=== PATIENT | female | born 1965 | race Caucasian/White ===

== ENCOUNTER 2020-10-04 12:44 | Outpatient (REF) | payer MEDICAID, SELFPAY ==
[2020-10-04 13:57] LABS: MANUAL DIFF FLAG NO
[2020-10-04 14:15] LABS: Basophils Absolute Auto 0.1 X10*3/uL (0.0-0.2); Eosinophils Absolute Auto 0.1 X10*3/uL (0.0-0.4); Eosinophils Percent Auto 2.4 % (0-4); Hematocrit 34.4 % (37-47); Hemoglobin 11.2 g/dl (12.0-16.0); Imm Gran Abs Auto 0.01 X10*3/uL (0.00-0.03); Imm Gran Pct Auto 0.2 % (0.0-0.4); Lymphocytes Absolute Auto 1.7 X10*3/uL (1.2-4.9); Lymphocytes Percent Auto 33.5 % (20-40); Mean Corpuscular HGB Conc 32.6 g/dl (31.0-35.0); Mean Corpuscular Hemoglobin 37.3 pg (27.0-33.0); Mean Platelet Volume 9.8 fL (9.4-12.3); Monocytes Absolute Auto 0.5 X10*3/uL (0.1-1.2); Monocytes Percent Auto 8.9 % (2-11); Neutrophils Absolute Auto 2.7 X10*3/uL (2.0-8.3); Platelet Count 252 X10*3/uL (160-400); Red Cell Distribution Width 12.3 % (11.0-16.0)
[2020-10-04 14:26] LABS: Mean Corpuscular Volume 114.7 fL (80-98)
[2020-10-04 14:38] LABS: Alanine Aminotransferase 44 U/L (0-31); Albumin Level 4.2 g/dL (3.5-5.0); Alkaline Phosphatase 154 U/L (39-117); Anion Gap 13 (12-20); Aspartate Amino Transferase 65 U/L (5-31); Bilirubin Total 0.5 mg/dL (0.0-1.0); Blood Urea Nitrogen 18 mg/dL (9-16); Calcium 9.6 mg/dL (8.4-10.2); Carbon Dioxide 25 mmol/L (22-29); Chloride 107 mmol/L (96-108); Estimated Glomerular Filt Rate > 60; Glucose Random 93 mg/dL (60-115); Sodium 141 mmol/L (135-145); Total Protein 6.8 g/dL (6.5-8.0)
[2020-10-04 14:46] LABS: Free T4 (Free Thyroxine) 0.84 ng/dL (0.71-1.85); Thyroid Stimulating Hormone 3.61 uIU/mL (0.32-4.0)
[2020-10-04 14:58] LABS: Folate 6.1 ng/mL (> or = 4.0); Vitamin B12 256 pg/mL (200-900)
== END 2020-10-04 12:45 | disposition home or self-care (01) ==
LOC: HO.10HDL 12:44
PROVIDERS: Visit Provider Internal Medicine
DX: R79.89 Other specified abnormal findings of blood chemistry (principal); E03.9 Hypothyroidism, unspecified; R21 Rash and other nonspecific skin eruption
CPT/HCPCS: 36415; 80053; 82607; 82746; 84439; 84443; 85025; 85060

== ENCOUNTER 2020-12-06 12:12 | Outpatient (REF) | payer MEDICAID, SELFPAY ==
[2020-12-06 13:22] LABS: MANUAL DIFF FLAG NO
[2020-12-06 13:24] LABS: Basophils Percent Auto 0.5 % (0-2); Eosinophils Percent Auto 0.3 % (0-4); Hematocrit 35.6 % (37-47); Hemoglobin 12.2 g/dl (12.0-16.0); Imm Gran Abs Auto 0.06 X10*3/uL (0.00-0.03); Imm Gran Pct Auto 0.9 % (0.0-0.4); Lymphocytes Absolute Auto 1.6 X10*3/uL (1.2-4.9); Lymphocytes Percent Auto 25.2 % (20-40); Mean Corpuscular HGB Conc 34.3 g/dl (31.0-35.0); Mean Corpuscular Hemoglobin 32.1 pg (27.0-33.0); Mean Corpuscular Volume 93.7 fL (80-98); Mean Platelet Volume 9.8 fL (9.4-12.3); Monocytes Absolute Auto 1.1 X10*3/uL (0.1-1.2); Monocytes Percent Auto 17.4 % (2-11); Neutrophils Absolute Auto 3.6 X10*3/uL (2.0-8.3); Neutrophils Percent Auto 55.7 % (45-73); Platelet Count 161 X10*3/uL (160-400); Red Cell Distribution Width 14.8 % (11.0-16.0); White Blood Count 6.5 X10*3/uL (4.8-10.8)
[2020-12-06 14:11] LABS: Free T4 (Free Thyroxine) 0.95 ng/dL (0.71-1.85); Sodium 132 mmol/L (135-145)
[2020-12-06 14:12] LABS: Alanine Aminotransferase 32 U/L (0-31); Albumin Level 4.4 g/dL (3.5-5.0); Alkaline Phosphatase 167 U/L (39-117); Anion Gap 19 (12-20); Aspartate Amino Transferase 82 U/L (5-31); Bilirubin Total 1.2 mg/dL (0.0-1.0); Blood Urea Nitrogen 11 mg/dL (9-16); C Reactive Protein 1.35 mg/dL (< or = 0.50); Calcium 10.2 mg/dL (8.4-10.2); Carbon Dioxide 29 mmol/L (22-29); Chloride 87 mmol/L (96-108); Estimated Glomerular Filt Rate > 60; Glucose Random 126 mg/dL (60-115); Lipase 828 U/L (8-78); Potassium 2.8 mmol/L (3.3-5.1); Total Protein 6.9 g/dL (6.5-8.0)
[2020-12-06 14:26] LABS: Vitamin B12 886 pg/mL (200-900)
== END 2020-12-06 12:13 | disposition home or self-care (01) ==
LOC: HO.10HDL 12:12
PROVIDERS: Visit Provider Internal Medicine
DX: R10.9 Unspecified abdominal pain (principal); R63.4 Abnormal weight loss; E03.9 Hypothyroidism, unspecified
CPT/HCPCS: 36415; 80053; 82306; 82550; 82607; 83690; 84439; 84443; 85025; 86140

== ENCOUNTER 2020-12-06 15:48 | Inpatient (IN) | payer MEDICAID, SELFPAY ==
--- NOTE | ~2020-12-06 | CT_ITS ---
EXAMINATION: CT ABDOMEN AND PELVIS WITH CONTRAST CLINICAL INFORMATION: Acute alcoholic pancreatitis COMPARISON: Ultrasound abdomen 02/03/[address] abdomen 12/01/2015 TECHNIQUE: Multidetector volumetric images were obtained from the superior aspect of the liver through the pubic symphysis following administration 85 mL of Omnipaque 350 intravenous contrast. Sagittal and coronal reformatted images were obtained on the technologist's workstation. Oral contrast: No This CT examination was performed using dose optimization techniques as appropriate, variously including the following: *Automated exposure control *Adjustment of mA and/or kV according to patient size (this includes techniques or standardized protocols for targeted exams where dose is matched to indication/reason for exam; i.e. extremities or head) *Use of iterative reconstruction technique DLP: 455 mGy-cm FINDINGS: LUNG BASES: The visualized lung bases are unremarkable. LIVER, GALLBLADDER, AND BILIARY TREE: The liver demonstrates decreased attenuation consistent with hepatic steatosis or liver disease. Just beneath the dome of the right hemidiaphragm, there is a hyperenhancing mass present measuring about 1.9 x 1.2 x 1.1 cm (4:60). This was present in 2015 and mid and appeared quite similar with appearances suggestive of a cavernous hemangioma at that time. No bile duct dilatation is seen. No new liver masses are detected. The gallbladder is unremarkable with no evidence of radiopaque gallstones, gallbladder wall thickening, or obvious pericholecystic inflammatory changes. PANCREAS: Unremarkable. There is no evidence to suggest the presence of pancreatitis. No peripancreatic inflammatory changes are seen. No peripancreatic fluid collections are seen. SPLEEN: Unremarkable. A splenule is seen. ADRENAL GLANDS: Unremarkable. KIDNEYS AND URETERS: The kidneys are normal in size, shape, and attenuation. No hydronephrosis, hydroureter, or calculi seen. No perinephric stranding. BLADDER: Unremarkable. GASTROINTESTINAL TRACT: The small and large bowel are unremarkable. The appendix is unremarkable. ABDOMINAL WALL: No significant hernia is appreciated. LYMPH NODES: No retroperitoneal lymphadenopathy VASCULAR: Compared with the prior study there is new reflux present in the ovarian veins with associated pelvic varices.The left ovarian vein measures a centimeter in diameter in the right is 0.8 cm. The abdominal aorta and iliofemoral vessels are unremarkable. The portal venous system is patent. The hepatic veins are patent PELVIC VISCERA: An anteverted uterus is present with multiple fibroids. OSSEOUS STRUCTURES: Unremarkable. CT/CT abdomen pelvis w con IMPRESSION: 1. No CT evidence of pancreatitis. 2. Decreased attenuation of liver consistent with hepatic steatosis/liver disease 3. Stable 1.9 cm liver mass consistent with a hemangioma 4. New ovarian vein reflux with pelvic varices. This can sometimes be a cause of chronic pelvic pain, typically worsened by the upright or sitting position and relieved with the supine position. If the patient has these symptoms she would benefit with a consultation with an interventional radiologist. 5. Uterine fibroids
[2020-12-06 15:50] VITALS: BP 126/78; PULSE 91; RESP 18; TEMP 36.8; O2SAT 96; BMI 22.3
[2020-12-06 17:51] LABS: MANUAL DIFF FLAG NO
[2020-12-06 17:53] LABS: Basophils Percent Auto 0.3 % (0-2); Eosinophils Percent Auto 0.3 % (0-4); Hematocrit 36.6 % (37-47); Hemoglobin 12.6 g/dl (12.0-16.0); Imm Gran Abs Auto 0.07 X10*3/uL (0.00-0.03); Imm Gran Pct Auto 1.1 % (0.0-0.4); Lymphocytes Absolute Auto 1.7 X10*3/uL (1.2-4.9); Lymphocytes Percent Auto 26.5 % (20-40); Mean Corpuscular HGB Conc 34.4 g/dl (31.0-35.0); Mean Corpuscular Hemoglobin 32.2 pg (27.0-33.0); Mean Corpuscular Volume 93.6 fL (80-98); Mean Platelet Volume 9.1 fL (9.4-12.3); Monocytes Absolute Auto 1.1 X10*3/uL (0.1-1.2); Monocytes Percent Auto 17.1 % (2-11); Neutrophils Absolute Auto 3.4 X10*3/uL (2.0-8.3); Neutrophils Percent Auto 54.7 % (45-73); Platelet Count 155 X10*3/uL (160-400); Red Blood Count 3.91 X10*6/uL (4.20-5.50); Red Cell Distribution Width 14.9 % (11.0-16.0); White Blood Count 6.3 X10*3/uL (4.8-10.8)
[2020-12-06 18:45] LABS: Alanine Aminotransferase 33 U/L (0-31); Albumin Level 4.4 g/dL (3.5-5.0); Alkaline Phosphatase 167 U/L (39-117); Anion Gap 20 (12-20); Aspartate Amino Transferase 81 U/L (5-31); Bilirubin Total 1.2 mg/dL (0.0-1.0); Blood Urea Nitrogen 11 mg/dL (9-16); Calcium 9.8 mg/dL (8.4-10.2); Carbon Dioxide 28 mmol/L (22-29); Chloride 87 mmol/L (96-108); Creatinine Clr Calc Pharmacy 76.2; Estimated Glomerular Filt Rate > 60; Glucose Random 114 mg/dL (60-115); Sodium 132 mmol/L (135-145)
[2020-12-06 18:59] LABS: Lipase 687 U/L (8-78); Potassium 2.7 mmol/L (3.3-5.1)
[2020-12-06 20:00] VITALS: BP 110/59; PULSE 79; RESP 18; TEMP 36.8; O2SAT 96
--- NOTE | 2020-12-06 21:10 | ED_ITS ---
HPI - Abdominal Pain General Chief Complaint: Recheck/Abnormal Lab/Rx Stated Complaint: Abdominal pain Time Seen by Provider: 12/06/20 21:09 Source: patient Mode of arrival: ambulatory Limitations: no limitations History of Present Illness HPI narrative: Patient alcoholic stop drinking but in 1 week ago since then h aving mid abdominal pain with nausea and vomiting lost about 18 lb of weight in last 1 week unable to eat or drink much never had any pancreatitis or gastritis in the past no blood in the urine no blood in the stool no diarrhea , does not feel hungry feels bloated no fever or chills no cough no shortness of breath never had any pancreatitis in the past patient was seen by PCP earlier today who did labs and asked to go to hospital MD elicited complaint: abdominal pain Onset (ago): week(s) Location: epigastric Severity: moderate Quality: cramping Radiation: none Exacerbating factors: eating Relieving factors: nothing Associated symptoms: nausea and vomiting Related Data Home Medications Medication Instructions Recorded Confirmed No Known Home Meds 12/06/20 12/06/20 Allergies Allergy/AdvReac Type Severity Reaction Status Date / Time No Known Allergies Allergy Unverified 05/04/20 15:25 Review of Systems Review of Systems Constitutional : ++ Weight loss, No Fever, No Chills ENT/Mouth : No sore throat, No Rhinorrhea Eyes: No Eye Pain, No Swelling Cardiovascular : No Chest Pain, no palpitations Respiratory : No Cough, No Sputum, no shortness of breath Gastrointestinal : ++ Nausea, ++ Vomiting, No Diarrhea, ++ abdominal Pain, no black stools Genitourinary : No Dysuria, No Urinary Frequency Musculoskeletal : No joint pain, No Myalgias, No Joint Swelling Skin : No Skin Lesions, No rash Neuro : No Weakness, No Numbness, No Dizziness, No Headache Psych : No Anxiety/Panic, No Depression Heme/Lymph: No Bruising, No Lymphadenopathy Endocrine : No Polyuria, No Polydipsia All other systems reviewed and are negative Physical Exam Vital Signs: Vital Signs: Last Vital Signs Temp 97.8 F 12/07/20 00:00 Pulse 61 12/07/20 00:00 Resp 17 12/07/20 00:00 BP 95/58 L 12/07/20 00:00 Pulse Ox 99 12/07/20 00:00 Body Mass Index 22.3 Appearance: Alert. Oriented X3. No acute distress. Eyes: Pupils equal, round and reactive to light. ENT: Pharynx normal. Neck: Normal inspection. Neck supple. CVS: Normal heart rate and rhythm. Pulses normal. Respiratory: No respiratory distress. Breath sounds normal. Abdomen: Soft moderate tenderness mid abdomen and epigastric area no rebound tenderness or guarding. Bowel sounds are present, no mass palpable, no CVA tenderness Skin: Skin warm and dry. Normal skin color. Normal skin turgor. Extremities: No lower extremity edema. Neuro: Oriented X 3. No motor deficit. No sensory deficit. MDM - Abdominal Pain MDM Narrative Medical decision making narrative: Patient has acute pancreatitis secondary to alcohol use CT scan negative for any fluid collection patient lost about 18 lb in 1 week vomiting and abdominal pain will admit patient for IV hydration and pain control was the patient's potassium was 2.7 which was replaced by IV potassium Differential Diagnosis Differential diagnosis: Likely pancreatitis Medical Records Attestation: I reviewed the patient's medical records. Lab Data Attestation: I reviewed the patient's lab results. Result diagrams: 12/06/20 17:46 12/06/20 17:46 Labs: Lab Results 12/06/20 12/06/20 12/06/20 Range/Units 17:46 17:46 17:46 WBC 6.3 (4.8-10.8) X10*3/uL RBC 3.91 L (4.20-5.50) X10*6/uL Hgb 12.6 (12.0-16.0) g/dl Hct 36.6 L (37-47) % MCV 93.6 (80-98) fL MCH 32.2 (27.0-33.0) pg MCHC 34.4 (31.0-35.0) g/dl RDW 14.9 (11.0-16.0) % Plt Count 155 L (160-400) X10*3/uL MPV 9.1 L (9.4-12.3) fL Immature Gran % (Auto) 1.1 H (0.0-0.4) % Neut % (Auto) 54.7 (45-73) % Lymph % (Auto) 26.5 (20-40) % [place] % (Auto) 17.1 H (2-11) % Eos % (Auto) 0.3 (0-4) % Baso % (Auto) 0.3 (0-2) % Lymph # (Auto) 1.7 (1.2-4.9) X10*3/uL [place] # (Auto) 1.1 (0.1-1.2) X10*3/uL Eos # (Auto) 0.0 (0.0-0.4) X10*3/uL Baso # (Auto) 0.0 (0.0-0.2) X10*3/uL Abs Immat Gran (auto) 0.07 H (0.00-0.03) X10*3/uL Absolute Neuts (auto) 3.4 (2.0-8.3) X10*3/uL Absolute Nucleated RBC 0.000 (0.0-0.012) X10*3/uL Nucleated RBC % (auto) 0.0 (0.0-0.2) /100WBC Hold Blue Top SEE NOTE Sodium 132 L (135-145) mmol/L Potassium 2.7 L (3.3-5.1) mmol/L Chloride 87 L (96-108) mmol/L Carbon Dioxide 28 (22-29) mmol/L Anion Gap 20 (12-20) BUN 11 (9-16) mg/dL Creatinine 0.69 (0.5-1.4) mg/dL Estim Creat Clear Calc 76.2 Estimated GFR > 60 Random Glucose 114 (60-115) mg/dL Calcium 9.8 (8.4-10.2) mg/dL Magnesium 1.6 (1.6-2.6) mg/dL Total Bilirubin 1.2 H (0.0-1.0) mg/dL AST 81 H (5-31) U/L ALT 33 H (0-31) U/L Alkaline Phosphatase 167 H (39-117) U/L Total Protein 7.0 (6.5-8.0) g/dL Albumin 4.4 (3.5-5.0) g/dL Triglycerides 49 mg/dL Cholesterol 162 mg/dL LDL Cholesterol, Calc 92 mg/dl HDL Cholesterol 61 mg/dL Lipase 687 H (8-78) U/L COVID-19 ([facility]) (Negative) COVID-19 Clin Com 12/06/20 Range/Units 21:38 WBC (4.8-10.8) X10*3/uL RBC (4.20-5.50) X10*6/uL Hgb (12.0-16.0) g/dl Hct (37-47) % MCV (80-98) fL MCH (27.0-33.0) pg MCHC (31.0-35.0) g/dl RDW (11.0-16.0) % Plt Count (160-400) X10*3/uL MPV (9.4-12.3) fL Immature Gran % (Auto) (0.0-0.4) % Neut % (Auto) (45-73) % Lymph % (Auto) (20-40) % [place] % (Auto) (2-11) % Eos % (Auto) (0-4) % Baso % (Auto) (0-2) % Lymph # (Auto) (1.2-4.9) X10*3/uL [place] # (Auto) (0.1-1.2) X10*3/uL Eos # (Auto) (0.0-0.4) X10*3/uL Baso # (Auto) (0.0-0.2) X10*3/uL Abs Immat Gran (auto) (0.00-0.03) X10*3/uL Absolute Neuts (auto) (2.0-8.3) X10*3/uL Absolute Nucleated RBC (0.0-0.012) X10*3/uL Nucleated RBC % (auto) (0.0-0.2) /100WBC Hold Blue Top Sodium (135-145) mmol/L Potassium (3.3-5.1) mmol/L Chloride (96-108) mmol/L Carbon Dioxide (22-29) mmol/L Anion Gap (12-20) BUN (9-16) mg/dL Creatinine (0.5-1.4) mg/dL Estim Creat Clear Calc Estimated GFR Random Glucose (60-115) mg/dL Calcium (8.4-10.2) mg/dL Magnesium (1.6-2.6) mg/dL Total Bilirubin (0.0-1.0) mg/dL AST (5-31) U/L ALT (0-31) U/L Alkaline Phosphatase (39-117) U/L Total Protein (6.5-8.0) g/dL Albumin (3.5-5.0) g/dL Triglycerides mg/dL Cholesterol mg/dL LDL Cholesterol, Calc mg/dl HDL Cholesterol mg/dL Lipase (8-78) U/L COVID-19 ([facility]) Negative (Negative) COVID-19 Clin Com See Note PMFSH Past Medical History Medical History Alcohol abuse Endometriosis Surgical History History of endometrial ablation Social History Social History Advance Directives: No Advance Directives Information Provided: Yes
[2020-12-06] MEDS: 0.9 % Sodium Chloride 1,000 ML 999 ML IVCONT (21:22)
[2020-12-06] MEDS: ondansetron HCL 4 MG/2 ML VIAL IVPUSH (21:24)
[2020-12-06] MEDS: Morphine Sulfate 4 MG/ML CARTRIDGE IVPUSH (21:24)
[2020-12-06] MEDS: Potassium Chloride/H20 10 MEQ/100 ML PIGGYBACK 100 MEQ IV (21:34)
[2020-12-06 21:52] LABS: Cholesterol 162 mg/dL; HDL Cholesterol 61 mg/dL; LDL Cholesterol Calculated 92 mg/dl; Magnesium 1.6 mg/dL (1.6-2.6); Triglycerides 49 mg/dL
[2020-12-06 22:05] LABS: COVID-19 Test Negative (Negative); IDNOW Serial# 9DD0AD1C
[2020-12-06] MEDS: iohexoL 350 MG/ML 100 ML INFUS..BTL IV (22:34)
[2020-12-07] VITALS (12 sets, daily range): BP systolic 95–133; BP diastolic 52–72; PULSE 61–84; RESP 17–20; TEMP 35.8–37.2; O2SAT 96–99
--- NOTE | 2020-12-07 | ECG_ITS ---
Test Reason : LOW PATTISUM Blood Pressure : / mmHG Vent. Rate : 059 BPM Atrial Rate : 059 BPM P-R Int : 178 ms QRS Dur : 102 ms QT Int : 466 ms P-R-T Axes : 024 057 071 degrees QTc Int : 461 ms Sinus bradycardia Otherwise normal ECG No previous ECGs available Referred By: Barber Neri Electronically Signed By:Peng Rojas
[2020-12-07] MEDS: Lactated Ringers 1,000 ML 200 ML IVCONT ×5 (00:47→22:41)
[2020-12-07] MEDS: Potassium Chloride Packet 20 MEQ PACKET 40 MEQ PO ×2 (02:15→07:57)
[2020-12-07] MEDS: Enoxaparin Sodium 40 MG/0.4 ML SYRINGE SUBCUT (02:15)
[2020-12-07] MEDS: Famotidine/PF 20 MG/2 ML VIAL IVPUSH ×3 (02:15→22:34)
[2020-12-07] MEDS: Morphine Sulfate 4 MG/ML CARTRIDGE IVPUSH ×4 (04:01→22:37)
--- NOTE | 2020-12-07 05:54 | PM.IMHP ---
History of Present Illness Date of Service: 12/07/20 Chief Complaint: Nausea vomiting, This is a 55-year-old female with history of alcohol abuse who presents the hospital with complaints of nausea vomiting and abdominal pain for the past seven days. Pain is localized to the epigastric region, radiating to the back, 7/10, associated with nausea and vomiting, no diarrhea. Reports that she quit alcohol use about a week ago and has not had any severe withdrawal symptoms. She denies any chest pain, no palpitations, no cough, shortness of breath, no urinary symptoms and no lower extremity edema. No headache or change in vision. To the ED hemodynamically stable with no significant abnormal vitals Labs are significant for WBC count of 6.3, hemoglobin of 12.6, sodium of 132, potassium of 2.7, total bili of 1.2, AST of 81, ALT of 33, alk-phos of 167, lipase of 687, Abdomen/pelvic CT shows no CT evidence of pancreatitis, decreased attenuation of liver consistent with hepatic steatosis/liver disease, stable 1.9 cm liver mass consistent with hemangioma, new ovarian vein reflux with pelvic varices. Patient will be admitted for further management of acute pancreatitis Review of Systems Review of Systems: Yes all other systems are reviewed and are negative [facility] Medical History Alcohol abuse Endometriosis Surgical History History of endometrial ablation Social History Household Members: Spouse and Family Housing: House Do you presently have visiting nurse or other home services: No Smoking Status: Never smoker Second Hand Smoke Exposure: No Use of substances other than those prescribed or required for medical reasons: No Currently Displaying Signs/Symptoms of Drug Intoxication Withdrawal: No Any prior treatment program specific to substance use: No Have you been hit, kicked, punched, or otherwise hurt by someone within the past year? If so, by whom?: No Do you feel safe in your current relationship?: Yes Is there a partner from a previous relationship who is making you feel unsafe now?: No Are you made to feel afraid or neglected: No Advance Directives: No Advance Directives Information Provided: Yes Do you have thoughts of harming others: None Do you have a plan to hurt others: No Plan Meds Allergies Allergy/AdvReac Type Severity Reaction Status Date / Time No Known Allergies Allergy Unverified 05/04/20 15:25 Active Medications: Current Medications Generic Name Dose Route Start Last Admin Trade Name Freq PRN Reason Stop Dose Admin Acetaminophen 650 mg 12/07/20 01:26 Acetaminophen 325 Mg Tablet PO Q6H PRN Pain, Mild (Pain Scale 1-3) Docusate Sodium 100 mg 12/07/20 01:26 Docusate Sodium 100 Mg Capsule PO DAILY PRN Constipation Enoxaparin Sodium 40 mg 12/07/20 02:00 12/07/20 02:15 Enoxaparin Sodium 40 Mg/0.4 Ml Syringe SUBCUT 40 mg Q24H GIUSEPPE Administration Lactated Ringer's 1,000 mls @ 200 mls/hr 12/07/20 00:45 12/07/20 00:47 Lr IVCONT 200 mls/hr .Q5H GIUSEPPE Administration Morphine Sulfate 4 mg 12/07/20 00:40 12/07/20 04:01 Morphine Sulfate 4 Mg/Ml Cartridge IVPUSH 4 mg Q4H PRN Administration Pain, Severe (Pain Scale 7-10) Ondansetron HCl 4 mg 12/07/20 01:26 Ondansetron Hcl 4 Mg/2 Ml Vial IVPUSH Q8H PRN Nausea and Vomiting Sodium Chloride 3 ml 12/07/20 08:00 0.9 % Sodium Chloride Flush 3 Ml Syringe IVFLUSH QSHIFT [facility] Home Medications Medication Instructions Recorded Confirmed Last Taken Type No Known Home Meds 12/06/20 12/06/20 Unknown History Physical Exam Vital Signs and Narrative: Vital Signs: Last Vital Signs Temp 97.1 F 12/07/20 04:00 Pulse 68 12/07/20 04:00 Resp 18 12/07/20 04:00 BP 103/59 L 12/07/20 04:00 Pulse Ox 96 12/07/20 04:00 Body Mass Index 22.3 Const: General: cooperative and no acute distress Orientation/consciousness: patient oriented x3 Eyes: General: appearance normal, both eyes and all related structures Resp: Effort & Inspection: normal respiratory effort and able to speak in complete sentences Cardio: Rate: regular rate Rhythm: regular rhythm GI: Other: Tenderness in the epigastric and right upper quadrant regions of the abdomen No rebound and no guarding Palpation (GI): Soft to palpation Auscultation: normal bowel sounds Skin: General skin exam: no rashes or lesions noted Neuro: General: patient oriented x3 Cognition (Neuro): normal cognition Extrem: General: Yes normal to inspection and Yes no pedal edema Results Labs CBC and Chem 7: 12/06/20 17:46 12/06/20 17:46 Labs: Laboratory Results - last 24 hr 12/06/20 12/06/20 12/06/20 17:46 17:46 17:46 MCV 93.6 MCH 32.2 MCHC 34.4 RDW 14.9 Plt Count 155 L MPV 9.1 L Immature Gran % (Auto) 1.1 H Neut % (Auto) 54.7 Lymph % (Auto) 26.5 [place] % (Auto) 17.1 H Eos % (Auto) 0.3 Baso % (Auto) 0.3 Lymph # (Auto) 1.7 [place] # (Auto) 1.1 Eos # (Auto) 0.0 Baso # (Auto) 0.0 Abs Immat Gran (auto) 0.07 H Absolute Neuts (auto) 3.4 Absolute Nucleated RBC 0.000 Nucleated RBC % (auto) 0.0 Hold Blue Top SEE NOTE Anion Gap 20 Estim Creat Clear Calc 76.2 Estimated GFR > 60 Random Glucose 114 Calcium 9.8 Magnesium 1.6 Total Bilirubin 1.2 H AST 81 H ALT 33 H Alkaline Phosphatase 167 H Total Protein 7.0 Albumin 4.4 Triglycerides 49 Cholesterol 162 LDL Cholesterol, Calc 92 HDL Cholesterol 61 Lipase 687 H COVID-19 ([facility]) COVID-19 Clin Com 12/06/20 21:38 MCV MCH MCHC RDW Plt Count MPV Immature Gran % (Auto) Neut % (Auto) Lymph % (Auto) [place] % (Auto) Eos % (Auto) Baso % (Auto) Lymph # (Auto) [place] # (Auto) Eos # (Auto) Baso # (Auto) Abs Immat Gran (auto) Absolute Neuts (auto) Absolute Nucleated RBC Nucleated RBC % (auto) Hold Blue Top Anion Gap Estim Creat Clear Calc Estimated GFR Random Glucose Calcium Magnesium Total Bilirubin AST ALT Alkaline Phosphatase Total Protein Albumin Triglycerides Cholesterol LDL Cholesterol, Calc HDL Cholesterol Lipase COVID-19 ([facility]) Negative COVID-19 Clin Com See Note Imaging Radiologist's Impressions: Impressions Abdomen/Pelvis CT 12/06/20 21:11 IMPRESSION: 1. No CT evidence of pancreatitis. 2. Decreased attenuation of liver consistent with hepatic steatosis/liver disease 3. Stable 1.9 cm liver mass consistent with a hemangioma 4. New ovarian vein reflux with pelvic varices. This can sometimes be a cause of chronic pelvic pain, typically worsened by the upright or sitting position and relieved with the supine position. If the patient has these symptoms she would benefit with a consultation with an interventional radiologist. 5. Uterine fibroids Assessment and Plan (1) Acute alcoholic pancreatitis: Qualifiers: Acute pancreatitis complication: no infection or necrosis Qualified Code(s): K85.20 - Alcohol induced acute pancreatitis without necrosis or infection Status: Acute (2) Acute hypokalemia: Status: Acute (3) Nausea & vomiting: Status: Acute # N/V/Abdominal Pain secondary to acute pancreatitis - Presents with abd pain radiating to the back, N/V, elevated Lipase, most likely in the setting of acute pancreatitis due to alcohol use - although CT of the abdomen negative for acute pancreatitis patient does meet acute pancreatitis criteria with 2/3 required for diagnosis - no evidence of gallbladder disease - normal triglycerides - Will start her on IV fluids, pain control # acute hypokalemia - most likely secondary to nausea vomiting - repleted - follow potassium level # history of alcohol abuse - reports that she quit about 7 days ago with no withdrawals - will monitor - folic acid and thiamine supplement DVT prophylaxis: lovenox
[2020-12-07] MEDS: Folic Acid 1 MG TABLET PO (07:58)
[2020-12-07] MEDS: Thiamine HCL 100 MG TABLET PO (07:58)
[2020-12-07 09:51] LABS: Hematocrit 32.2 % (37-47); Hemoglobin 11.1 g/dl (12.0-16.0); Mean Corpuscular HGB Conc 34.5 g/dl (31.0-35.0); Mean Corpuscular Hemoglobin 32.7 pg (27.0-33.0); Mean Platelet Volume 9.4 fL (9.4-12.3); Platelet Count 149 X10*3/uL (160-400); Red Blood Count 3.39 X10*6/uL (4.20-5.50); Red Cell Distribution Width 15.3 % (11.0-16.0)
[2020-12-07] MEDS: ondansetron HCL 4 MG/2 ML VIAL IVPUSH (10:04)
[2020-12-07 10:10] LABS: Anion Gap 14 (12-20); Blood Urea Nitrogen 7 mg/dL (9-16); Calcium 8.8 mg/dL (8.4-10.2); Carbon Dioxide 30 mmol/L (22-29); Chloride 98 mmol/L (96-108); Creatinine Clr Calc Pharmacy 83.4; Estimated Glomerular Filt Rate > 60; Glucose Fasting 107 mg/dL (60-99); Potassium 3.2 mmol/L (3.3-5.1); Sodium 139 mmol/L (135-145)
--- NOTE | 2020-12-07 11:26 | MHC.CM.PN ---
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 Patient lives with . CM assisted patient with filling out HCP form naming her Moe [phone], copy is on file. Discussed discharge plan, home no services. will provide transportation. CM will continue to follow patient for discharge needs.
[2020-12-07] MEDS: Potassium Chloride ER 20 MEQ TAB.ER.PRT 40 MEQ PO ×2 (12:16→17:35)
[2020-12-07 12:56] LABS: Alanine Aminotransferase 26 U/L (0-31); Albumin Level 3.7 g/dL (3.5-5.0); Alkaline Phosphatase 130 U/L (39-117); Aspartate Amino Transferase 51 U/L (5-31); Bilirubin Direct 0.5 mg/dL (0.0-0.5); Bilirubin Total 1.1 mg/dL (0.0-1.0); Lipase 285 U/L (8-78); Total Protein 5.7 g/dL (6.5-8.0)
--- NOTE | 2020-12-07 14:04 | HO.PM.IMPN ---
Subjective Subjective Date of Service: 12/07/20 Interval History: seen and examined this AM feeling some abdominal pain with nausea reports burning feeling in the chest denies anginal chest pain ROS General - no fevers or chills Cardiovascular - no chest pain Respiratory - no shortness of breath or cough Abdominal- no abdominal pain, nausea, vomiting, diarrhea Physical Exam Vital Signs: Vital Signs: Last Vital Signs Temp 96.5 F L 12/07/20 11:41 Pulse 71 12/07/20 11:41 Resp 18 12/07/20 11:41 BP 97/52 L 12/07/20 11:41 Pulse Ox 96 12/07/20 11:41 Body Mass Index 22.3 Const: Other: General - in pain and distress Cardiovascular - regular rate and rhythm, S1-S2 Lungs - normal respiratory effort, clear to auscultation bilaterally, no wheezing Abdomen - diffuse pain without rebound or guarding Extremities - no edema bilaterally Neuro - awake and alert, no focal deficits Objective Data Current Medications Generic Name Dose Route Start Last Admin Trade Name Freq PRN Reason Stop Dose Admin Acetaminophen 650 mg 12/07/20 01:26 Acetaminophen 325 Mg Tablet PO Q6H PRN Pain, Mild (Pain Scale 1-3) Docusate Sodium 100 mg 12/07/20 01:26 Docusate Sodium 100 Mg Capsule PO DAILY PRN Constipation Enoxaparin Sodium 40 mg 12/07/20 02:00 12/07/20 02:15 Enoxaparin Sodium 40 Mg/0.4 Ml Syringe SUBCUT 40 mg Q24H GIUSEPPE Administration Famotidine 20 mg 12/07/20 14:05 Famotidine/Pf 20 Mg/2 Ml Vial IVPUSH BID GIUSEPPE Folic Acid 1 mg 12/07/20 09:00 12/07/20 07:58 Folic Acid 1 Mg Tablet PO 1 mg DAILY GIUSEPPE Administration Lactated Ringer's 1,000 mls @ 200 mls/hr 12/07/20 00:45 12/07/20 12:12 Lr IVCONT 200 mls/hr .Q5H GIUSEPPE Administration Morphine Sulfate 4 mg 12/07/20 00:40 12/07/20 08:06 Morphine Sulfate 4 Mg/Ml Cartridge IVPUSH 4 mg Q4H PRN Administration Pain, Severe (Pain Scale 7-10) Ondansetron HCl 4 mg 12/07/20 01:26 12/07/20 10:04 Ondansetron Hcl 4 Mg/2 Ml Vial IVPUSH 4 mg Q8H PRN Administration Nausea and Vomiting Pharmacy Consult 1 each 12/07/20 10:07 Consult Rx Perform Med Rec MISCELLANE ONCE PRN Consult order Sodium Chloride 3 ml 12/07/20 08:00 12/07/20 08:16 0.9 % Sodium Chloride Flush 3 Ml Syringe IVFLUSH Not Given QSHIFT GIUSE[facility]PE Thiamine HCl 100 mg 12/07/20 09:00 12/07/20 07:58 Thiamine Hcl 100 Mg Tablet PO 100 mg DAILY GIUSEPPE Administration Labs CBC & Chem 7: 12/07/20 09:33 12/07/20 09:33 Assessment and Plan (1) Acute alcoholic pancreatitis: Status: Acute Assessment and Plan: This is a 55-year-old female with a past medical history of heavy alcohol use who presents to the hospital complaints of severe diffuse abdominal pain. She reports that she stopped drinking about 8 days prior to arrival and subsequently developed severe nausea and vomiting the next several days and now presents with diffuse abdominal pain. 1. Acute Alcoholic pancreatitis not improved as of yet clear liquids Aggressive fluid resuscitation Monitor CBC and chemistry 2. Alcoholic gastritis started IV pepcid 3. HypoK repleted with IV/PO as needed check Mag and replete if needed 4. Alcohol abuse and dependence no signs of withdrawal. last drink >1 week ago monitor, hold off start phenobarb at this time Full Code DVT pptx, Lovenox
[2020-12-07 14:26] LABS: Magnesium 1.6 mg/dL (1.6-2.6)
[2020-12-07] MEDS: Morphine Sulfate 2 MG/ML CARTRIDGE IVPUSH (14:56)
[2020-12-08] VITALS (7 sets, daily range): BP systolic 96–132; BP diastolic 56–72; PULSE 61–74; RESP 18–19; TEMP 36.1–36.6; O2SAT 96–99
[2020-12-08] MEDS: Enoxaparin Sodium 40 MG/0.4 ML SYRINGE SUBCUT (01:30)
[2020-12-08] MEDS: Morphine Sulfate 4 MG/ML CARTRIDGE IVPUSH ×3 (02:34→11:08)
[2020-12-08 05:48] LABS: MANUAL DIFF FLAG NO
[2020-12-08 05:53] LABS: Basophils Percent Auto 0.3 % (0-2); Eosinophils Absolute Auto 0.1 X10*3/uL (0.0-0.4); Eosinophils Percent Auto 1.5 % (0-4); Hematocrit 30.3 % (37-47); Imm Gran Abs Auto 0.05 X10*3/uL (0.00-0.03); Imm Gran Pct Auto 1.3 % (0.0-0.4); Lymphocytes Absolute Auto 1.5 X10*3/uL (1.2-4.9); Mean Corpuscular Hemoglobin 32.1 pg (27.0-33.0); Mean Corpuscular Volume 97.1 fL (80-98); Mean Platelet Volume 9.4 fL (9.4-12.3); Monocytes Absolute Auto 0.6 X10*3/uL (0.1-1.2); Monocytes Percent Auto 15.6 % (2-11); Neutrophils Absolute Auto 1.7 X10*3/uL (2.0-8.3); Neutrophils Percent Auto 42.3 % (45-73); Platelet Count 133 X10*3/uL (160-400); Red Blood Count 3.12 X10*6/uL (4.20-5.50); Red Cell Distribution Width 15.3 % (11.0-16.0); White Blood Count 3.9 X10*3/uL (4.8-10.8)
[2020-12-08 06:24] LABS: Alanine Aminotransferase 22 U/L (0-31); Alkaline Phosphatase 107 U/L (39-117); Anion Gap 11 (12-20); Aspartate Amino Transferase 41 U/L (5-31); Bilirubin Direct 0.5 mg/dL (0.0-0.5); Bilirubin Total 0.9 mg/dL (0.0-1.0); Blood Urea Nitrogen 4 mg/dL (9-16); Calcium 8.3 mg/dL (8.4-10.2); Carbon Dioxide 28 mmol/L (22-29); Chloride 102 mmol/L (96-108); Creatinine Clr Calc Pharmacy 99.2; Estimated Glomerular Filt Rate > 60; Glucose Fasting 83 mg/dL (60-99); Potassium 3.7 mmol/L (3.3-5.1); Sodium 137 mmol/L (135-145); Total Protein 4.7 g/dL (6.5-8.0)
[2020-12-08] MEDS: Lactated Ringers 1,000 ML 200 ML IVCONT (06:35)
[2020-12-08 06:37] LABS: Lipase 183 U/L (8-78)
[2020-12-08] MEDS: Thiamine HCL 100 MG TABLET PO (10:21)
[2020-12-08] MEDS: Famotidine/PF 20 MG/2 ML VIAL IVPUSH (10:21)
[2020-12-08] MEDS: Folic Acid 1 MG TABLET PO (10:22)
--- NOTE | 2020-12-08 14:28 | HO.PM.IMPN ---
Subjective Subjective Date of Service: 12/08/20 Interval History: seen and examined this AM pain slowly improving tolerated clears and asking to advance diet ROS General - no fevers or chills Cardiovascular - no chest pain Respiratory - no shortness of breath or cough Abdominal- +abd pain Physical Exam Vital Signs: Vital Signs: Last Vital Signs Temp 97.1 F 12/08/20 11:02 Pulse 66 12/08/20 11:02 Resp 18 12/08/20 11:02 BP 96/58 L 12/08/20 11:02 Pulse Ox 96 12/08/20 11:02 Body Mass Index 22.3 Const: Other: General - no acute distress, appears comfortable Cardiovascular - regular rate and rhythm, S1-S2 Lungs - normal respiratory effort, clear to auscultation bilaterally, no wheezing Abdomen - +tenderness diffusly but less so compared to yesterday Extremities - no edema bilaterally Neuro - awake and alert, no focal deficits Objective Data Current Medications Generic Name Dose Route Start Last Admin Trade Name Freq PRN Reason Stop Dose Admin Acetaminophen 650 mg 12/07/20 01:26 Acetaminophen 325 Mg Tablet PO Q6H PRN Pain, Mild (Pain Scale 1-3) Docusate Sodium 100 mg 12/07/20 01:26 Docusate Sodium 100 Mg Capsule PO DAILY PRN Constipation Enoxaparin Sodium 40 mg 12/07/20 02:00 12/08/20 01:30 Enoxaparin Sodium 40 Mg/0.4 Ml Syringe SUBCUT 40 mg Q24H GIUSEPPE Administration Famotidine 20 mg 12/07/20 14:05 12/08/20 10:21 Famotidine/Pf 20 Mg/2 Ml Vial IVPUSH 20 mg BID GIUSEPPE Administration Folic Acid 1 mg 12/07/20 09:00 12/08/20 10:22 Folic Acid 1 Mg Tablet PO 1 mg DAILY GIUSEPPE Administration Lactated Ringer's 1,000 mls @ 125 mls/hr 12/08/20 15:00 Lr IVCONT .Q8H GIUSEPPE Morphine Sulfate 4 mg 12/07/20 00:40 12/08/20 11:08 Morphine Sulfate 4 Mg/Ml Cartridge IVPUSH 4 mg Q4H PRN Administration Pain, Severe (Pain Scale 7-10) Morphine Sulfate 2 mg 12/07/20 14:03 12/07/20 14:56 Morphine Sulfate 2 Mg/Ml Cartridge IVPUSH 2 mg Q2H PRN Administration Pain, Moderate (Pain Scale 4-6 Ondansetron HCl 4 mg 12/07/20 01:26 12/07/20 10:04 Ondansetron Hcl 4 Mg/2 Ml Vial IVPUSH 4 mg Q8H PRN Administration Nausea and Vomiting Pharmacy Consult 1 each 12/07/20 10:07 Consult Rx Perform Med Rec MISCELLANE ONCE PRN Consult order Sodium Chloride 3 ml 12/07/20 08:00 12/08/20 07:47 0.9 % Sodium Chloride Flush 3 Ml Syringe IVFLUSH Not Given QSHIFT GIUSEPPE Thiamine HCl 100 mg 12/07/20 09:00 12/08/20 10:21 Thiamine Hcl 100 Mg Tablet PO 100 mg DAILY GIUSEPPE Administration Labs CBC & Chem 7: 12/08/20 05:01 12/08/20 05:01 Assessment and Plan (1) Acute alcoholic pancreatitis: Status: Acute Assessment and Plan: This is a 55-year-old female with a past medical history of heavy alcohol use who presents to the hospital complaints of severe diffuse abdominal pain. She reports that she stopped drinking about 8 days prior to arrival and subsequently developed severe nausea and vomiting the next several days and now presents with diffuse abdominal pain. 1. Acute Alcoholic pancreatitis slowly improved advance diet taper IV pain meds and IVF 2. Alcoholic gastritis improved change pepcid to oral 3. HypoK repleted with IV/PO as needed check Mag and replete if needed 4. Alcohol abuse and dependence no signs of withdrawal. last drink >1 week ago monitor, hold off start phenobarb at this time Full Code DVT pptx, Lovenox
[2020-12-08] MEDS: Lactated Ringers 1,000 ML 125 ML IVCONT ×2 (14:36→22:24)
[2020-12-08] MEDS: Morphine Sulfate 2 MG/ML CARTRIDGE IVPUSH (18:06)
[2020-12-08] MEDS: Famotidine 20 MG TABLET PO (20:16)
[2020-12-09 00:09] VITALS: RESP 18
[2020-12-09] MEDS: Morphine Sulfate 2 MG/ML CARTRIDGE IVPUSH ×2 (00:09→06:20)
[2020-12-09] MEDS: Enoxaparin Sodium 40 MG/0.4 ML SYRINGE SUBCUT (03:13)
[2020-12-09 04:00] VITALS: BP 120/73; PULSE 70; RESP 18; TEMP 36.7; O2SAT 96
[2020-12-09 06:20] VITALS: RESP 18
[2020-12-09] MEDS: Lactated Ringers 1,000 ML 125 ML IVCONT (06:20)
[2020-12-09 07:21] VITALS: BP 119/79; PULSE 63; RESP 20; TEMP 35.8; O2SAT 96
--- NOTE | 2020-12-09 08:05 | PM.DS ---
DS: Providers Provider Date of Service: 12/09/20 <LAURA Alcala - Last Filed: 12/09/20 10:08> 12/09/20 <Reji Fernandez MD - Last Filed: 12/09/20 16:38> Date of admission: 12/07/20 00:40 <LAURA Alcala - Last Filed: 12/09/20 10:08> Primary care physician: Toy Crawford MD <LAURA Alcala - Last Filed: 12/09/20 10:08> Consults: 12/08/20 15:07 Consult to Care Team Routine Comment: Reason for consultation: etoh use <LAURA Alcala Last Filed: 12/09/20 10:08> DS: Diagnosis Discharge Diagnosis (1) Acute alcoholic pancreatitis: Status: Acute <LAURA Alcala - Last Filed: 12/09/20 10:08> (2) Alcohol dependence: Status: Acute <LAURA Alcala - Last Filed: 12/09/20 10:08> DS: Medications Discharge Medications Home Medications: Home Medications Medication Instructions Recorded Confirmed cyanocobalamin (vitamin B-12) 1,000 mcg PO DAILY 12/07/20 12/07/20 levothyroxine 75 mcg PO DAILY 12/07/20 12/07/20 omeprazole 20 mg PO DAILY 12/07/20 12/07/20 thiamine HCl (vitamin B1) 100 mg PO BID 12/07/20 12/07/20 <LAURA Alcala - Last Filed: 12/09/20 10:08> DS: Summary Hospital Course Hospital Course: This is a 55-year-old female with a past medical history of heavy alcohol use who presents to the hospital complaints of severe diffuse abdominal pain. She reports that she stopped drinking about 8 days prior to arrival and subsequently developed severe nausea and vomiting the next several days and now presents with diffuse abdominal pain. Abdominal pain. Workup was significant for elevated lipase of 687. Scan of the abdomen did not show pancreatitis. However abdominal pain likely secondary to pancreatitis as well as alcoholic gastritis. She was made NPO, treated with aggressive IV fluid and pain management. She was started on IV Pepcid. Her lipase and LFTs trended down. Her pain gradually improved and her diet was gradually advanced and she is currently tolerating a regular diet and is stable for discharge. Alcohol dependence. Her last drink was 1 week prior to admission. She did not display any signs of alcohol withdrawal. She did not require phenobarbital protocol. She was seen by the care team and received resources for maintaining sobriety. I saw and examined this patient wit PA and formulated the plan with PA, I agree with discharge plan as outline here. Spoke to her about need for complete alcohol abstience to prevent future health complication. Otherwise I agree with assesment and plan for discharge. <LAURA Alcala - Last Filed: 12/09/20 10:08> Time Spent with Patient Time attestation: Total time spent providing and/or coordinating discharge services: <LAURA Alcala Last Filed: 12/09/20 10:08> Discharge coordination time: Greater than 30 minutes <LAURA Alcala Last Filed: 12/09/20 10:08> Physical Exam Vital Signs: Vital Signs: Last Vital Signs Temp 96.5 F L 12/09/20 07:21 Pulse 63 12/09/20 07:21 Resp 20 12/09/20 07:21 BP 119/79 12/09/20 07:21 Pulse Ox 96 12/09/20 07:21 Body Mass Index 22.3 <LAURA Alcala Last Filed: 12/09/20 10:08> Const: Nutritional Appearance: well nourished <LAURA Alcala Last Filed: 12/09/20 10:08> Orientation/consciousness: patient oriented x3 <LAURA Alcala Last Filed: 12/09/20 10:08> HENMT: Head: Yes normocephalic and Yes atraumatic <LAURA Alcala Last Filed: 12/09/20 10:08> Eyes: Sclerae: sclerae normal <LAURA Alcala Last Filed: 12/09/20 10:08> Chest: Chest palpation & inspection: normal inspection of the chest <LAURA Alcala Last Filed: 12/09/20 10:08> Resp: Effort & Inspection: normal respiratory effort and no respiratory distress <LAURA Alcala - Last Filed: 12/09/20 10:08> Cardio: Rate: regular rate <LAURA Alcala - Last Filed: 12/09/20 10:08> Rhythm: regular rhythm <LAURA Alcala - Last Filed: 12/09/20 10:08> GI: Palpation (GI): Soft to palpation and nontender <LAURA Alcala - Last Filed: 12/09/20 10:08> Skin: General skin exam: no rashes or lesions noted <LAURA Alcala - Last Filed: 12/09/20 10:08> Neuro: General: patient oriented x3 <LAURA Alcala - Last Filed: 12/09/20 10:08> Cranial nerves: Yes CN's II-XII intact bilaterally and Yes Bilaterally intact EOM present <LAURA Alcala Last Filed: 12/09/20 10:08> Extrem: General: Yes normal to inspection <LAURA Alcala - Last Filed: 12/09/20 10:08> Discharge Plan Discharge Patient Disposition: Home, Self-Care <LAURA Alcala - Last Filed: 12/09/20 10:08> Discharge Diagnosis: Pancreatitis related to alcohol use <LAURA Alcala - Last Filed: 12/09/20 10:08> Pancreatitis related to alcohol use <Reji Fernandez MD - Last Filed: 12/09/20 16:38> Referrals: Toy Crawford MD [Primary Care Provider] - 1 Week <LAURA Alcala - Last Filed: 12/09/20 10:08> Discharge Medications: Continued levothyroxine 75 mcg Tablet 75 mcg PO DAILY RF: 0 thiamine HCl (vitamin B1) 100 mg Tablet 100 mg PO BID RF: 0 cyanocobalamin (vitamin B-12) 1,000 mcg Tablet 1,000 mcg PO DAILY RF: 0 omeprazole 20 mg Tablet,Disintegrat, Delay Rel 20 mg PO DAILY RF: 0 <LAURA Alcala Last Filed: 12/09/20 10:08> Discharge Orders: Discharge Order (Routine); Ordered 12/09/20 Ordered By: Karla Dietz <LAURA Alcala - Last Filed: 12/09/20 10:08> Activity on Discharge: As tolerated <LAURA Alcala - Last Filed: 12/09/20 10:08> As tolerated <Reji Fernandez MD - Last Filed: 12/09/20 16:38> Stand Alone Forms: Patient Portal Discharge page <LAURA Alcala - Last Filed: 12/09/20 10:08> Care Plan Goals: Abstinence from alcohol <LAURA Alcala - Last Filed: 12/09/20 10:08> Health Concerns: Daily alcohol use pancreatitis <LAURA Alcala - Last Filed: 12/09/20 10:08> Plan of Treatment: Daily alcohol use - refrain from drinking alcohol. <LAURA Alcala - Last Filed: 12/09/20 10:08> Assessment: See discharge summary <LAURA Alcala - Last Filed: 12/09/20 10:08> Discharge Date/Time: 12/09/20 11:42 <LAURA Alcala - Last Filed: 12/09/20 10:08>
[2020-12-09] MEDS: Famotidine 20 MG TABLET PO (08:10)
[2020-12-09] MEDS: Thiamine HCL 100 MG TABLET PO (08:10)
[2020-12-09] MEDS: Folic Acid 1 MG TABLET PO (08:10)
--- NOTE | 2020-12-09 09:05 | MHC.RECOVSUP ---
Recovery Support note: Patient is a 55 year old Kinyarwanda speaking female who presented to [facility] ED due to nausea, vomiting and abdominal pain and was medically admitted. This ghost writer met with patient in room 485-1 to discuss her alcohol use and treatment options. Patient reports that she had her last drink on 11/29 and woke up the next morning saying to herself I don't want to drink anymore. Patient reports she has not had a drink since and has not had any cravings despite her continuing to drink. Patient reports her has had periods of sobriety however is currently drinking. Patient lives above her mother and sister who don't drink and she reports that she will spend her time with them if her does not stop drinking. Patient reports that she was previously working at a [employer] for 25 years however was let go at the start of the pandemic. 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 Discussed with patient resources and supports that can be utilized to fill her time during early recovery. Patient reports she is already enrolled in the IOP through [facility] with a plan to start this week. Discussed additional supports through [facility] that can be utilized after she completes IOP. Discussed AA with patient and provided patient with information on how to get connected with meetings. Patient expressed interest in this support. Discussed [facility] and provided patient with information on this resource. Patient expressed interest in getting connected with a counselor. This ghost writer discussed CC with patient and she was agreeable to having this ghost writer place a referral for ongoing counseling. Encouraged patient to be proud of her ten days of sobriety and her positive mindset and strong plan moving forward. Patient accepted the resources offered and reports no questions at this time. CC will reach out to patient directly to schedule an intake. Recovery Support Team available as needed.
--- NOTE | 2020-12-09 11:43 | MHC.CM.PN ---
PT BEING DISCHARGED HOME TODAY WITH NO SERVICES
== END 2020-12-09 11:42 | disposition home or self-care (01) | DRG 241 ==
LOC: HO.ED 21:02 → HO.EDOVER 12-07 00:52 → HO.IMC 12-07 02:23
PROVIDERS: Family Medicine; Physician Assistant Medical; Admitting Provider Internal Medicine; Emergency Provider Internal Medicine; PCP Internal Medicine; Visit Provider Internal Medicine
DX: K29.20 Alcoholic gastritis without bleeding (principal); K85.20 Alcohol induced acute pancreatitis without necrosis or infection; E87.6 Hypokalemia; F10.20 Alcohol dependence, uncomplicated; Z20.822 Contact with and (suspected) exposure to COVID-19; Z79.890 Hormone replacement therapy; Z79.899 Other long term (current) drug therapy
CPT/HCPCS: 36415; 74177; 80048; 80053; 80061; 80076; 83690; 83735; 85025; 85027; 87635; 93005; 96365; 96375; 99219; 99285; J1650; J2270; J2405; Q9967

== ENCOUNTER 2021-01-10 22:35 | Inpatient (IN) | payer MEDICAID, SELFPAY ==
[2021-01-10 22:39] VITALS: BP 103/57; PULSE 84; RESP 18; TEMP 36.7; O2SAT 100; BMI 25.7
--- NOTE | 2021-01-10 23:06 | ED_ITS ---
HPI - Alcohol General Chief Complaint: ETOH/Substance Use Stated Complaint: etoh Time Seen by Provider: 01/10/21 23:04 Source: patient Mode of arrival: ambulatory Limitations: no limitations History of Present Illness HPI narrative: Patient presents to the ED for alcohol on breath. Patient admits to drinking lots of alcohol but does not know amount. Patient denies hitting head. No EMS report of head trauma. Related Data Home Medications Medication Instructions Recorded Confirmed No Known Home Meds 01/10/21 01/10/21 Allergies Allergy/AdvReac Type Severity Reaction Status Date / Time No Known Allergies Allergy Unverified 05/04/20 15:25 Review of Systems Review of Systems: Yes all other systems are reviewed and are negative Constitutional: Constitutional: Reports as per HPI and Reports no additional constitutional complaints Eyes: Eyes: Reports as per HPI and Reports no additional eye complaints ENT: Reports system reviewed and no additional complaints, except as documented and Reports as per HPI Cardiovascular: Cardiovascular: Reports as per HPI and Reports no additional cardiovascular complaints Respiratory: Respiratory: Reports as per HPI and Reports no additional respiratory complaints Gastrointestinal: Gastrointestinal: Reports as per HPI and Reports no additional gastrointestinal complaints Genitourinary: Genitourinary: Reports no additional female genitourinary complaints and Reports as per HPI Musculoskeletal: Musculoskeletal: Reports no additional musculoskeletal complaints and Reports as per HPI Neurologic: Reports system reviewed and no additional complaints, except as documented and Reports as per HPI Psychiatric: Psychiatric: Reports no additional psychiatric complaints and Reports as per HPI PMFSH Past Medical History Medical History Alcohol abuse Endometriosis Surgical History History of endometrial ablation Social History Social History Household Members: Spouse and Family Housing: House Do you presently have visiting nurse or other home services: No Alcohol intake: current Alcohol intake frequency: 3 or more drinks per day Alcohol type: beer, wine and hard liquor Patient Tobacco Use Status: Current everyday Tobacco user Smoked in Last 30 Days: Yes Second Hand Smoke Exposure: No Use of substances other than those prescribed or required for medical reasons: No Advance Directives: No Advance Directives Information Provided: No Patient : No service: No Current occupational status: employed Physical Exam Vital Signs: Vital Signs: Last Vital Signs Temp 98.0 F 01/11/21 00:00 Pulse 85 01/11/21 00:00 Resp 18 01/11/21 00:00 BP 100/85 01/11/21 00:00 Pulse Ox 100 01/11/21 00:00 Body Mass Index 25.7 Const: Other: Alcohol on breath General: cooperative, healthy appearing and comfortable Orientation/consciousness: patient oriented x3 HENMT: Head: Yes normal to inspection, Yes No palpable skull fracture present, Yes normocephalic, Yes atraumatic, No abrasion, No Mcbride's sign, No contusion, No cranial bruits, No hematoma, No laceration, No occipital foramen tenderness, No palpable skull fracture, No raccoon eyes, No scalp lesion, No scalp tenderness, No Temporal artery tenderness present and No periorbital ecchymosis Eyes: General: appearance normal, both eyes and all related structures Neck: Neck: Yes normal visual inspection, Yes full ROM, Yes no lymphadenopathy, Yes no meningeal signs, Yes trachea midline, Yes supple and No tender Chest: Chest palpation & inspection: normal inspection of the chest and normal palpation of entire chest wall Resp: Effort & Inspection: normal respiratory effort and able to speak in complete sentences Auscultation: clear to auscultation bilaterally Cardio: Jugular venous distension: no JVD Heart sounds: S1 normal heart sound present and S2 normal heart sound present GI: Inspection: Yes normal to inspection and No abdominal wall ecchymosis Palpation (GI): Soft to palpation, not firm, nontender, no guarding and not rigid : General: No CVA tenderness and Yes no CVA tenderness Back/Spine/Pelvis: Back: no CVA tenderness, No CVA tenderness and No back tenderness Skin: General skin exam: no rashes or lesions noted and elasticity normal Neuro: General: patient oriented x3, gait normal, no meningeal signs and CN's II-XI intact bilaterally Cranial nerves: Yes CN's II-XII intact bilaterally Extrem: General: Yes normal to inspection and Yes full ROM Psych: Appearance: grossly normal, well kempt and not disheveled Course Course Course Narrative: Patient had alcoholl breath. Patient will have labs drums allowed to sleep in the ER to sober. Reevaluation(s) Reevaluation #1: Patient's labs showed hypokalemia and hypo magnesemia. EKG was done and does not show widened QRS. EKG normal sinus rhythm normal EKG. Ventricular rate 83. Pr interval 196. QRS 104. Patient ordered 10 mEq potassium twice and potassium 40 oral. Magnesium ordered. Patient presented to hospitalists who accepted case MDM - Alcohol MDM Narrative Medical decision making narrative: Hypo magnesemia hypokalemia Lab Data Result diagrams: 01/10/21 23:12 01/10/21 23:12 Labs: Lab Results 01/10/21 01/10/21 01/10/21 Range/Units 23:12 23:12 23:12 WBC 5.0 (4.8-10.8) X10*3/uL RBC 3.00 L (4.20-5.50) X10*6/uL Hgb 9.8 L (12.0-16.0) g/dl Hct 28.0 L (37-47) % MCV 93.3 (80-98) fL MCH 32.7 (27.0-33.0) pg MCHC 35.0 (31.0-35.0) g/dl RDW 14.9 (11.0-16.0) % Plt Count 138 L (160-400) X10*3/uL MPV 9.1 L (9.4-12.3) fL Immature Gran % (Auto) 0.2 (0.0-0.4) % Neut % (Auto) 30.3 L (45-73) % Lymph % (Auto) 55.6 H (20-40) % Hardeman % (Auto) 12.3 H (2-11) % Eos % (Auto) 1.0 (0-4) % Baso % (Auto) 0.6 (0-2) % Lymph # (Auto) 2.8 (1.2-4.9) X10*3/uL Hardeman # (Auto) 0.6 (0.1-1.2) X10*3/uL Eos # (Auto) 0.1 (0.0-0.4) X10*3/uL Baso # (Auto) 0.0 (0.0-0.2) X10*3/uL Abs Immat Gran (auto) 0.01 (0.00-0.03) X10*3/uL Absolute Neuts (auto) 1.5 L (2.0-8.3) X10*3/uL Absolute Nucleated RBC 0.000 (0.0-0.012) X10*3/uL Nucleated RBC % (auto) 0.0 (0.0-0.2) /100WBC Sodium 130 L (135-145) mmol/L Potassium 2.4 L* D (3.3-5.1) mmol/L Chloride 88 L (96-108) mmol/L Carbon Dioxide 27 (22-29) mmol/L Anion Gap 17 (12-20) BUN 4 L (9-16) mg/dL Creatinine 0.58 (0.5-1.4) mg/dL Estim Creat Clear Calc 103.8 Estimated GFR > 60 Random Glucose 97 (60-115) mg/dL Calcium 8.9 D (8.4-10.2) mg/dL Magnesium 1.4 L* (1.6-2.6) mg/dL Total Bilirubin 0.4 (0.0-1.0) mg/dL AST 72 H (5-31) U/L ALT 29 (0-31) U/L Alkaline Phosphatase 127 H (39-117) U/L Total Protein 5.7 L D (6.5-8.0) g/dL Albumin 3.7 D (3.5-5.0) g/dL Ethyl Alcohol 405 H* mg/dL COVID-19 ([facility]) (Negative) COVID-19 Clin Com 01/11/21 Range/Units 00:32 WBC (4.8-10.8) X10*3/uL RBC (4.20-5.50) X10*6/uL Hgb (12.0-16.0) g/dl Hct (37-47) % MCV (80-98) fL MCH (27.0-33.0) pg MCHC (31.0-35.0) g/dl RDW (11.0-16.0) % Plt Count (160-400) X10*3/uL MPV (9.4-12.3) fL Immature Gran % (Auto) (0.0-0.4) % Neut % (Auto) (45-73) % Lymph % (Auto) (20-40) % Hardeman % (Auto) (2-11) % Eos % (Auto) (0-4) % Baso % (Auto) (0-2) % Lymph # (Auto) (1.2-4.9) X10*3/uL Hardeman # (Auto) (0.1-1.2) X10*3/uL Eos # (Auto) (0.0-0.4) X10*3/uL Baso # (Auto) (0.0-0.2) X10*3/uL Abs Immat Gran (auto) (0.00-0.03) X10*3/uL Absolute Neuts (auto) (2.0-8.3) X10*3/uL Absolute Nucleated RBC (0.0-0.012) X10*3/uL Nucleated RBC % (auto) (0.0-0.2) /100WBC Sodium (135-145) mmol/L Potassium (3.3-5.1) mmol/L Chloride (96-108) mmol/L Carbon Dioxide (22-29) mmol/L Anion Gap (12-20) BUN (9-16) mg/dL Creatinine (0.5-1.4) mg/dL Estim Creat Clear Calc Estimated GFR Random Glucose (60-115) mg/dL Calcium (8.4-10.2) mg/dL Magnesium (1.6-2.6) mg/dL Total Bilirubin (0.0-1.0) mg/dL AST (5-31) U/L ALT (0-31) U/L Alkaline Phosphatase (39-117) U/L Total Protein (6.5-8.0) g/dL Albumin (3.5-5.0) g/dL Ethyl Alcohol mg/dL COVID-19 ([facility]) Negative (Negative) COVID-19 Clin Com See Note ECG Data Interpretation: Normal sinus rhythm. Normal EKG. Ventricular rate 83. Pr interval 196. QRS 104. QTC 477. Negative STEMI Discharge Plan Discharge Clinical Impression: Alcohol dependence, Hypomagnesemia, Acute hypokalemia Patient Disposition: Admitted As Inpatient
[2021-01-10 23:19] LABS: MANUAL DIFF FLAG NO
[2021-01-10 23:20] LABS: Basophils Percent Auto 0.6 % (0-2); Eosinophils Absolute Auto 0.1 X10*3/uL (0.0-0.4); Hemoglobin 9.8 g/dl (12.0-16.0); Imm Gran Abs Auto 0.01 X10*3/uL (0.00-0.03); Imm Gran Pct Auto 0.2 % (0.0-0.4); Lymphocytes Absolute Auto 2.8 X10*3/uL (1.2-4.9); Lymphocytes Percent Auto 55.6 % (20-40); Mean Corpuscular Hemoglobin 32.7 pg (27.0-33.0); Mean Corpuscular Volume 93.3 fL (80-98); Mean Platelet Volume 9.1 fL (9.4-12.3); Monocytes Absolute Auto 0.6 X10*3/uL (0.1-1.2); Monocytes Percent Auto 12.3 % (2-11); Neutrophils Absolute Auto 1.5 X10*3/uL (2.0-8.3); Neutrophils Percent Auto 30.3 % (45-73); Platelet Count 138 X10*3/uL (160-400); Red Cell Distribution Width 14.9 % (11.0-16.0)
[2021-01-10 23:53] LABS: Ethanol 405 mg/dL
[2021-01-11] VITALS (8 sets, daily range): BP systolic 84–114; BP diastolic 52–85; PULSE 65–85; RESP 15–20; TEMP 36.1–37.2; O2SAT 95–100; BMI 25.7
[2021-01-11 00:04] LABS: Alanine Aminotransferase 29 U/L (0-31); Albumin Level 3.7 g/dL (3.5-5.0); Alkaline Phosphatase 127 U/L (39-117); Anion Gap 17 (12-20); Aspartate Amino Transferase 72 U/L (5-31); Bilirubin Total 0.4 mg/dL (0.0-1.0); Blood Urea Nitrogen 4 mg/dL (9-16); Calcium 8.9 mg/dL (8.4-10.2); Carbon Dioxide 27 mmol/L (22-29); Chloride 88 mmol/L (96-108); Creatinine Clr Calc Pharmacy 103.8; Estimated Glomerular Filt Rate > 60; Glucose Random 97 mg/dL (60-115); Potassium 2.4 mmol/L (3.3-5.1); Sodium 130 mmol/L (135-145); Total Protein 5.7 g/dL (6.5-8.0)
--- NOTE | 2021-01-11 00:22 | ECG_ITS ---
Test Reason : HYPOKALEMIA Blood Pressure : / mmHG Vent. Rate : 083 BPM Atrial Rate : 083 BPM P-R Int : 196 ms QRS Dur : 104 ms QT Int : 406 ms P-R-T Axes : 049 039 043 degrees QTc Int : 477 ms Normal sinus rhythm Normal ECG When compared with ECG of 07-DEC-2020 02:20, No significant change was found Referred By: Donovan Cobian Electronically Signed By:DEV NERI
[2021-01-11] MEDS: Potassium Chloride Packet 20 MEQ PACKET 60 MEQ PO (00:32)
[2021-01-11] MEDS: Potassium Chloride/H20 10 MEQ/100 ML PIGGYBACK 100 MEQ IV (00:37)
[2021-01-11 00:38] LABS: Magnesium 1.4 mg/dL (1.6-2.6)
[2021-01-11] MEDS: Magnesium Sulfate/H2O 2 GM/50 ML PIGGYBACK IV (00:53)
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
[2021-01-11 01:07] LABS: COVID-19 Test Negative (Negative)
[2021-01-11] MEDS: Dextrose 5 % and 0.45 % NaCl 1,000 ML 100 ML IVCONT (02:19)
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
[2021-01-11] MEDS: 0.9 % Sodium Chloride 1,000 ML 999 ML IV (03:06)
[2021-01-11] MEDS: Dextrose 5 % and 0.9 % NaCl 1,000 ML 100 ML IVCONT (04:52)
[2021-01-11 05:04] LABS: Anion Gap 16 (12-20); Blood Urea Nitrogen 3 mg/dL (9-16); Calcium 8.3 mg/dL (8.4-10.2); Carbon Dioxide 28 mmol/L (22-29); Chloride 99 mmol/L (96-108); Creatinine Clr Calc Pharmacy 111.5; Estimated Glomerular Filt Rate > 60; Glucose Random 76 mg/dL (60-115); Potassium 3.1 mmol/L (3.3-5.1); Sodium 140 mmol/L (135-145)
[2021-01-11 06:49] LABS: Basophils Percent Auto 0.3 % (0-2); Eosinophils Absolute Auto 0.1 X10*3/uL (0.0-0.4); Eosinophils Percent Auto 1.7 % (0-4); Hematocrit 27.4 % (37-47); Hemoglobin 9.3 g/dl (12.0-16.0); Lymphocytes Absolute Auto 2.4 X10*3/uL (1.2-4.9); Lymphocytes Percent Auto 68.6 % (20-40); MANUAL DIFF FLAG SCAN; Mean Corpuscular HGB Conc 33.9 g/dl (31.0-35.0); Mean Corpuscular Volume 94.2 fL (80-98); Mean Platelet Volume 9.1 fL (9.4-12.3); Monocytes Absolute Auto 0.3 X10*3/uL (0.1-1.2); Neutrophils Absolute Auto 0.7 X10*3/uL (2.0-8.3); Neutrophils Percent Auto 20.4 % (45-73); Platelet Count 137 X10*3/uL (160-400); Red Blood Count 2.91 X10*6/uL (4.20-5.50); Red Cell Distribution Width 15.1 % (11.0-16.0); SCAN SMEAR FLAG 1; White Blood Count 3.5 X10*3/uL (4.8-10.8)
--- NOTE | 2021-01-11 07:08 | PC.NURSE ---
0420; IV bolus of NS finished, vitals are bp 98/57, hr 85, resp 17, 96% on room air. IV fluids D5 1/2 NS @ 100 mls/hr resumed. Dr. Díaz made aware. changed IVF, new order for IVF D5NS @ 100
[2021-01-11 07:29] LABS: Anion Gap 18 (12-20); Blood Urea Nitrogen 3 mg/dL (9-16); Calcium 7.9 mg/dL (8.4-10.2); Carbon Dioxide 25 mmol/L (22-29); Chloride 101 mmol/L (96-108); Creatinine Clr Calc Pharmacy 111.5; Estimated Glomerular Filt Rate > 60; Glucose Random 89 mg/dL (60-115); Sodium 141 mmol/L (135-145)
[2021-01-11 07:31] LABS: SLIDE REVIEW VERIFIED
[2021-01-11] MEDS: Famotidine 20 MG TABLET PO ×2 (07:36→20:04)
[2021-01-11] MEDS: Thiamine HCL 100 MG TABLET PO (07:36)
[2021-01-11] MEDS: 0.9 % Sodium Chloride Flush 3 ML SYRINGE IVFLUSH (07:36)
[2021-01-11] MEDS: Folic Acid 1 MG TABLET PO (07:36)
[2021-01-11] MEDS: Lactated Ringers 500 ML 100 ML IV (07:40)
[2021-01-11 08:22] LABS: Magnesium 1.9 mg/dL (1.6-2.6)
--- NOTE | 2021-01-11 09:09 | MHC.CM.PN ---
PATIENT LIVES WITH HER SPOUSE. SHE IS INDEPENDENT WITH ALL OF HER ADLS. NO DME OR VNA IN THE HOME. PATIENT STATES THAT SHE HAS BEEN IN TOUCH WITH [facility]LS[facility], BUT HAS NOT SEEN THE SERVICES THROUGH TO WHERE SHE HAS A DIRECTOR OF INSTRUCTION. SHE IS INTERESTED IN REGAINING SOBRIETY. RECOVERY SUPPORT RN MADE AWARE OF PATIENT WISH FOR A VISIT, WELL OBSTACLES TO SOBRIETY REPORTED TO THIS ENGINE BOSS. UPON REVIEW OF PATIENT'S BELONGINGS LIST, SHE DID NOT ARRIVE WITH ANY CH[facility]Y OR HER CELL PHONE. PATIENT NOW AWARE CASE MANAGEMENT FOLLOWING FOR DISCHARGE NEEDS.
--- NOTE | 2021-01-11 09:34 | MHC.CM.PN ---
PATIENT STATES THAT DR ARMIN VASQUEZ IS HER PRIMARY CARE PHYSICIAN. UPDATE MADE TO CASE MANAGEMENT OFFICE
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
[2021-01-11] MEDS: Potassium Chloride Packet 20 MEQ PACKET 40 MEQ PO (10:44)
--- NOTE | 2021-01-11 11:54 | MHC.RECOVSUP ---
? Reason for consult:Continuity of care o Current location: [facility] o Identified substance use concern: ETO - Support ? Intervention: o MAT started or to be started o Community resources provided o Harm reduction discussion ? Plan: o Referral to [facility] o Follow up tomorrow o Patient to follow up with [facility] after discharge ? Additional information: Pt. seeking MAT and a Chemical Laboratory Tester. Referred her to [facility] and [facility] for value stream coach. Suhail from [address] [place] [address]. will be handeling the chief engineer drilling and recovery assignment.
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
--- NOTE | 2021-01-11 12:32 | PM.EVENT ---
Event Note Date of Service: 01/12/21 Event Note: Patient seen and examined. Labs reviewed Physical exam: Cvs: rrr, [id number] , no murmur res: clear to auscultation ,no rhonchii or wheezing abd: no rebound or guarding ,nt, bs present. ext pulses present , no cyanosis neuro: axo3 , nonfocal. Assessment and plan coordinated in H&P note. Replete potassium Check magnesium levels. lfts's elevated probbale due to alcohol sofar no withdrawal care team ciwa scale neurochecks
--- NOTE | 2021-01-11 15:12 | MHC.RECOVRN ---
T/w met with pt to f/u regarding resources that were provided. Pt has phone appt with production recovery operator at 4pm today. Pt looking forward to the support. Will continue to follow.
[2021-01-11] MEDS: Lactated Ringers 1,000 ML 80 ML IVCONT (17:52)
[2021-01-11 20:47] LABS: CDIFF Ag Negative (Negative); CDIFF Internal ctrl Dots and bkg OK (V); CDiff Toxin Negative (Negative)
[2021-01-11] MEDS: Melatonin 3 MG TABLET 6 MG PO (20:49)
[2021-01-11] MEDS: hydrOXYzine HCL 25 MG TABLET PO (23:55)
[2021-01-12] MEDS: Enoxaparin Sodium 40 MG/0.4 ML SYRINGE SUBCUT ×2 (00:01→23:54)
[2021-01-12 03:27] VITALS: BP 112/62; PULSE 70; RESP 15; TEMP 36.6; O2SAT 100
[2021-01-12] MEDS: Lactated Ringers 1,000 ML 80 ML IVCONT (05:57)
[2021-01-12 07:56] VITALS: BP 99/58; PULSE 67; RESP 16; TEMP 36.3; O2SAT 97
[2021-01-12 08:33] LABS: Anion Gap 12 (12-20); Blood Urea Nitrogen 3 mg/dL (9-16); Calcium 8.4 mg/dL (8.4-10.2); Carbon Dioxide 30 mmol/L (22-29); Chloride 104 mmol/L (96-108); Creatinine Clr Calc Pharmacy 107.5; Estimated Glomerular Filt Rate > 60; Glucose Random 93 mg/dL (60-115); Potassium 3.5 mmol/L (3.3-5.1); Sodium 142 mmol/L (135-145)
[2021-01-12] MEDS: Famotidine 20 MG TABLET PO ×2 (08:57→20:40)
[2021-01-12] MEDS: Folic Acid 1 MG TABLET PO (08:58)
[2021-01-12] MEDS: Thiamine HCL 100 MG TABLET PO (08:58)
[2021-01-12] MEDS: PHENobarbitaL sodium 130 MG/ML VIAL IM (10:21)
[2021-01-12] MEDS: 0.9 % Sodium Chloride 1,000 ML 100 ML IVCONT ×2 (10:22→19:58)
[2021-01-12 11:30] VITALS: BP 98/60; PULSE 82; RESP 16; TEMP 36.3; O2SAT 99
--- NOTE | 2021-01-12 11:58 | P.PNIM_ITS ---
Subjective Subjective Date of Service: 01/12/21 Interval History: alcohol wihdrawal Review of Systems Patient seems to be tremulous and somewhat sweaty this morning. Seems very anxious Denies any nausea or vomiting or abdominal pain or fever chills or cough or phlegm. Physical Exam Vital Signs: Vital Signs: Last Vital Signs Temp 97.4 F 01/12/21 11:30 Pulse 82 01/12/21 11:30 Resp 16 01/12/21 11:30 BP 98/60 01/12/21 11:30 Pulse Ox 99 01/12/21 11:30 Body Mass Index 25.7 Physical exam: Cvs: rrr, [id number] , no murmur res: clear to auscultation ,no rhonchii or wheezing abd: no rebound or guarding ,nt, bs present. ext pulses present , no cyanosis neuro: axo3 , nonfocal. Seems tremulous, anxious. Objective Data Current Medications Generic Name Dose Route Start Last Admin Trade Name Freq PRN Reason Stop Dose Admin Enoxaparin Sodium 40 mg 01/11/21 02:00 01/12/21 00:01 Enoxaparin Sodium 40 Mg/0.4 Ml Syringe SUBCUT 40 mg Q24H GIUSEPPE Administration Famotidine 20 mg 01/11/21 09:00 01/12/21 08:57 Famotidine 20 Mg Tablet PO 20 mg BID GIUSEPPE Administration Folic Acid 1 mg 01/11/21 09:00 01/12/21 08:58 Folic Acid 1 Mg Tablet PO 01/14/21 08:59 1 mg DAILY GIUSEPPE Administration Hydroxyzine HCl 25 mg 01/11/21 00:56 01/11/21 23:55 Hydroxyzine Hcl 25 Mg Tablet PO 25 mg Q6H PRN Administration Anxiety Sodium Chloride 1,000 mls @ 100 mls/hr 01/12/21 09:30 01/12/21 10:22 Ns IVCONT 100 mls/hr .Q10H GIUSEPPE Administration Medication 1 each 01/12/21 10:00 No Benzodiazepines MISCELLANE DAILY GIUSEPPE Melatonin 6 mg 01/11/21 20:12 01/11/21 20:49 Melatonin 3 Mg Tablet PO 6 mg BEDTIME PRN Administration Insomnia Multivitamins 1 tab 01/11/21 09:00 01/12/21 08:57 B-Complex With Vitamin C Tablet PO 1 tab DAILY GIUSEPPE Administration Ondansetron HCl 4 mg 01/11/21 00:56 Ondansetron Hcl 4 Mg/2 Ml Vial IVPUSH Q8H PRN Nausea and Vomiting Pharmacy Consult 1 each 01/12/21 09:23 Consult Rx Etoh Phenob Dosing MISCELLANE ONCE PRN Consult order Protocol Phenobarbital 45 mg 01/13/21 09:00 Phenobarbital 15 Mg Tablet PO 01/14/21 21:01 BID [facility] Protocol Phenobarbital 30 mg 01/15/21 09:00 Phenobarbital 30 Mg Tablet PO 01/16/21 21:01 BID [facility] Protocol Phenobarbital 30 mg 01/17/21 09:00 Phenobarbital 30 Mg Tablet PO 01/18/21 09:01 DAILY [facility] Protocol Phenobarbital Sodium 99 mg 01/12/21 13:00 Phenobarbital Sodium 130 Mg/Ml Vial IM 01/12/21 16:01 Q3H [facility] Protocol Senna 17.2 mg 01/11/21 00:56 Sennosides 8.6 Mg Tablet PO BEDTIME PRN Constipation Sodium Chloride 3 ml 01/11/21 08:00 01/12/21 08:57 0.9 % Sodium Chloride Flush 3 Ml Syringe IVFLUSH Not Given QSHIFT [facility] Thiamine HCl 100 mg 01/11/21 09:00 01/12/21 08:58 Thiamine Hcl 100 Mg Tablet PO 01/14/21 08:59 100 mg DAILY [facility] Administration Labs CBC & Chem 7: 01/11/21 05:51 01/12/21 07:47 Assessment and Plan (1) Hypomagnesemia: Status: Acute (2) Acute hypokalemia: Status: Acute (3) Alcohol withdrawal: Status: Acute (4) Acute alcoholic pancreatitis: Status: Resolved Assessment and Plan: This is a 55-year-old female with a past medical history of heavy alcohol use who presents to the hospital complaints of severe diffuse abdominal pain. She reports that she stopped drinking about 8 days prior to arrival and subsequently developed severe nausea and vomiting the next several days and now presents with diffuse abdominal pain. 1. Acute Alcoholic pancreatitis seems improving advance diet taper IV pain meds and IVF 2. Alcoholic gastritis improved change pepcid to oral 3. HypoK : repleted and improved. 4. Alcohol withdrwal: Started on phenobarb protocol. Full Code DVT pptx, Lovenox
[2021-01-12] MEDS: PHENobarbitaL sodium 130 MG/ML VIAL 99 MG IM ×2 (13:16→15:41)
--- NOTE | 2021-01-12 13:41 | HO.ADDICT_ITS ---
History of Present Illness Date of Service: 01/12/2021 Chief Complaint: Hypokalemia Reason for Consult: Alcohol use disorder Requesting physician: Courtney Brock Discussed with referring provider: Yes Sources of Information: patient interviewed and chart reviewed HPI Narrative: Patient is a 55 year old female currently medically admitted with hypokalemia and alcohol withdrawal Patient seen by Recovery Support RN and expressed interest in starting medication for AUD so consult placed. Patient seen in room 360. Awake, alert, pleasant and engaged in interview. Reporting that she has been drinking 15-20 shots of alcohol daily and she wants to stop. Patient tearful during interview citing relationship issues related to ETOH use--she wants to stop and her , who also has AUD, does not wish to stop. She reports that drinking became an issue for her btwn 3-5 years ago. She has had a few brief periods of sobriety (2-3 weeks). Denies any other substance use Has connected to math coach while hospitalized. Still on phenobarb protocol Review of Systems Constitutional: Reports difficulty sleeping and Reports lethargy Gastrointestinal: Denies nausea and Denies vomiting Denies tremor(s) Psychiatric: Reports abnormal sleep pattern, Reports anxiety, Reports depression, Reports difficulty concentrating, Reports hopelessness, Reports anhedonia and Denies suicidal ideation Diagnostics Vital Signs (24Hr): Vital Signs - 24 hr 01/11/21 15:18 01/11/21 19:49 01/11/21 23:44 Temperature 98.9 F 97.7 F 97.6 F Pulse Rate 65 73 76 Respiratory Rate 19 20 15 Blood Pressure 105/56 L 114/60 96/54 L Pulse Oximetry 98 100 97 01/12/21 03:27 01/12/21 07:56 01/12/21 11:30 Temperature 97.8 F 97.4 F 97.4 F Pulse Rate 70 67 82 Respiratory Rate 15 16 16 Blood Pressure 112/62 99/58 L 98/60 Pulse Oximetry 100 97 99 Body Mass Index 25.7 Labs Results: 01/11/21 05:51 01/12/21 07:47 Labs: Laboratory Results - last 48 hr 01/10/21 01/10/21 01/10/21 23:12 23:12 23:12 WBC 5.0 RBC 3.00 L Hgb 9.8 L Hct 28.0 L MCV 93.3 MCH 32.7 MCHC 35.0 RDW 14.9 Plt Count 138 L MPV 9.1 L Immature Gran % (Auto) 0.2 Neut % (Auto) 30.3 L Lymph % (Auto) 55.6 H [place] % (Auto) 12.3 H Eos % (Auto) 1.0 Baso % (Auto) 0.6 Lymph # (Auto) 2.8 [place] # (Auto) 0.6 Eos # (Auto) 0.1 Baso # (Auto) 0.0 Abs Immat Gran (auto) 0.01 Absolute Neuts (auto) 1.5 L Absolute Nucleated RBC 0.000 Nucleated RBC % (auto) 0.0 Smear Tech's Comments Sodium 130 L Potassium 2.4 L* D Chloride 88 L Carbon Dioxide 27 Anion Gap 17 BUN 4 L Creatinine 0.58 Estim Creat Clear Calc 103.8 Estimated GFR > 60 Random Glucose 97 Calcium 8.9 D Magnesium 1.4 L* Total Bilirubin 0.4 AST 72 H ALT 29 Alkaline Phosphatase 127 H Total Protein 5.7 L D Albumin 3.7 D Ethyl Alcohol 405 H* C. difficile Toxin A&B C. difficile Antigen C. difficile Interpret COVID-19 ([facility]) COVID-19 Office Center 01/11/21 01/11/21 01/11/21 00:00 00:32 03:52 WBC RBC Hgb Hct MCV MCH MCHC RDW Plt Count MPV Immature Gran % (Auto) Neut % (Auto) Lymph % (Auto) [place] % (Auto) Eos % (Auto) Baso % (Auto) Lymph # (Auto) [place] # (Auto) Eos # (Auto) Baso # (Auto) Abs Immat Gran (auto) Absolute Neuts (auto) Absolute Nucleated RBC Nucleated RBC % (auto) Smear Tech's Comments Sodium 140 Potassium 3.1 L D Chloride 99 Carbon Dioxide 28 Anion Gap 16 BUN 3 L Creatinine 0.54 Estim Creat Clear Calc 111.5 Estimated GFR > 60 Random Glucose 76 Calcium 8.3 L D Magnesium 1.9 Total Bilirubin AST ALT Alkaline Phosphatase Total Protein Albumin Ethyl Alcohol C. difficile Toxin A&B Negative C. difficile Antigen Negative C. difficile Interpret SEE NOTE COVID-19 ([facility]) Negative COVID-19 Clin Com See Note 01/11/21 01/11/21 01/12/21 05:51 05:51 07:47 WBC 3.5 L RBC 2.91 L Hgb 9.3 L Hct 27.4 L MCV 94.2 MCH 32.0 MCHC 33.9 RDW 15.1 Plt Count 137 L MPV 9.1 L Immature Gran % (Auto) 0.0 Neut % (Auto) 20.4 L Lymph % (Auto) 68.6 H [place] % (Auto) 9.0 Eos % (Auto) 1.7 Baso % (Auto) 0.3 Lymph # (Auto) 2.4 [place] # (Auto) 0.3 Eos # (Auto) 0.1 Baso # (Auto) 0.0 Abs Immat Gran (auto) 0.00 Absolute Neuts (auto) 0.7 L Absolute Nucleated RBC 0.000 Nucleated RBC % (auto) 0.0 Smear Tech's Comments VERIFIED Sodium 141 142 Potassium 3.0 L 3.5 Chloride 101 104 Carbon Dioxide 25 30 H Anion Gap 18 12 BUN 3 L 3 L Creatinine 0.54 0.56 Estim Creat Clear Calc 111.5 107.5 Estimated GFR > 60 > 60 Random Glucose 89 93 Calcium 7.9 L 8.4 D Magnesium Total Bilirubin AST ALT Alkaline Phosphatase Total Protein Albumin Ethyl Alcohol C. difficile Toxin A&B C. difficile Antigen C. difficile Interpret COVID-19 ([facility]) COVID-19 Clin Com Mental Status Exam Mental Status Exam Patient Appearance: Appropriate Level of Consciousness: Appropriate Patient Behavior: Appropriate Mood Description: Sad Affect Description: Sad Ability to Follow Directions: Excellent Speech Pattern: Clear Thought Process: Intact and Goal Oriented Thought Content: positive for Intact Judgement: Good Medications Medications Current Medications Generic Name Dose Route Start Last Admin Trade Name Freq PRN Reason Stop Dose Admin Enoxaparin Sodium 40 mg 01/11/21 02:00 01/12/21 00:01 Enoxaparin Sodium 40 Mg/0.4 Ml Syringe SUBCUT 40 mg Q24H GIUSEPPE Administration Famotidine 20 mg 01/11/21 09:00 01/12/21 08:57 Famotidine 20 Mg Tablet PO 20 mg BID GIUSEPPE Administration Folic Acid 1 mg 01/11/21 09:00 01/12/21 08:58 Folic Acid 1 Mg Tablet PO 01/14/21 08:59 1 mg DAILY GIUSEPPE Administration Hydroxyzine HCl 25 mg 01/11/21 00:56 01/11/21 23:55 Hydroxyzine Hcl 25 Mg Tablet PO 25 mg Q6H PRN Administration Anxiety Sodium Chloride 1,000 mls @ 100 mls/hr 01/12/21 09:30 01/12/21 10:22 Ns IVCONT 100 mls/hr .Q10H GIUSEPPE Administration Medication 1 each 01/12/21 10:00 No Benzodiazepines MISCELLANE DAILY GIUSEPPE Melatonin 6 mg 01/11/21 20:12 01/11/21 20:49 Melatonin 3 Mg Tablet PO 6 mg BEDTIME PRN Administration Insomnia Multivitamins 1 tab 01/11/21 09:00 01/12/21 08:57 B-Complex With Vitamin C Tablet PO 1 tab DAILY GIUSEPPE Administration Ondansetron HCl 4 mg 01/11/21 00:56 Ondansetron Hcl 4 Mg/2 Ml Vial IVPUSH Q8H PRN Nausea and Vomiting Pharmacy Consult 1 each 01/12/21 09:23 Consult Rx Etoh Phenob Dosing MISCELLANE ONCE PRN Consult order Protocol Phenobarbital 45 mg 01/13/21 09:00 Phenobarbital 15 Mg Tablet PO 01/14/21 21:01 BID [facility] Protocol Phenobarbital 30 mg 01/15/21 09:00 Phenobarbital 30 Mg Tablet PO 01/16/21 21:01 BID [facility] Protocol Phenobarbital 30 mg 01/17/21 09:00 Phenobarbital 30 Mg Tablet PO 01/18/21 09:01 DAILY [facility] Protocol Phenobarbital Sodium 99 mg 01/12/21 13:00 01/12/21 13:16 Phenobarbital Sodium 130 Mg/Ml Vial IM 01/12/21 16:01 99 mg Q3H GIUSEPPE Administration Protocol Senna 17.2 mg 01/11/21 00:56 Sennosides 8.6 Mg Tablet PO BEDTIME PRN Constipation Sodium Chloride 3 ml 01/11/21 08:00 01/12/21 08:57 0.9 % Sodium Chloride Flush 3 Ml Syringe IVFLUSH Not Given QSHIFT [facility] Thiamine HCl 100 mg 01/11/21 09:00 01/12/21 08:58 Thiamine Hcl 100 Mg Tablet PO 01/14/21 08:59 100 mg DAILY GIUSEPPE Administration Allergies Allergies Allergy/AdvReac Type Severity Reaction Status Date / Time No Known Allergies Allergy Unverified 05/04/20 15:25 Assessment & Plan Assessment & Plan (1) Alcohol withdrawal: Status: Acute Code(s): F10.239 - Alcohol dependence with withdrawal, unspecified Recommendations: * Discussed treatment options. Agreeable to trial of Naltrexone * Discussed goals of treatment, dosing times and side effects * Intake schedule at [facility], 01/17 * prescription sen to patients pharmacy Greater than 50% of the session was spent on counseling and/or coordination of care PMFSH Past Medical History Medical History Alcohol abuse Endometriosis Surgical History Surgical History History of endometrial ablation Social History Social History Household Members: Spouse Household Members Other:: mother Housing: House Do you presently have visiting nurse or other home services: No Alcohol intake: current Alcohol intake frequency: 3 or more drinks per day Alcohol type: beer, wine and hard liquor Patient Tobacco Use Status: Current everyday Tobacco user Second Hand Smoke Exposure: No service: No Current occupational status: employed
--- NOTE | 2021-01-12 15:10 | MHC.CARE ---
CARE team support provided to pt, who is admitted to [facility]. Pt was seen by Recovery Support Team nurse, who recommended additional support re: pt's presentation with increasing depression and anxiety. Pt denied prior hx of anxiety and depression, and feels that her symptoms are due in part to increasing stress recently which is associated with pt's increasing alcohol use and challenges with her . Pt shared that her has always been unhelpful with tasks around the home, however over the few months he has been less attentive to ADLs and refusing to do or take care of anything. Mobile noting is that this weekend is the 3 year anniversary of pt's MIL passing away. She had been living with the pt and her for some time, then was placed on hospice and later in the home. Pt reported that she was her MIL's primary wardrobe specialist. Once her MIL's condition worsened significantly, pt's refused to go into the room to see his mother and did not say goodbye to her before she passed. Feelings of guilt and regret are a possible contributing factor to pt's 's reduction in motivation and overall functioning, which was discussed with pt. It was also reflected on that this weekend may also be impacting the pt's mental health and functioning as well. Pt expressed interest in referrals for therapy and psychiatry. This technical writer and editor recommended that pt utilize her PCP to trial an antidepressant, as the wait list to begin working with outpatient behavioral health providers is quite lengthy at local counseling agencies. This technical writer and editor will complete complete referrals for outpatient providers through [facility] and [facility]. Pt lives in [place] and has her own transportation. 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 Dr. Brock was updated re: outcome of CARE team consult, recommendations, and referrals to be made.
[2021-01-12 15:32] VITALS: BP 113/59; PULSE 69; RESP 16; TEMP 36.5; O2SAT 97
[2021-01-12] MEDS: hydrOXYzine HCL 25 MG TABLET PO (15:44)
[2021-01-12 19:11] VITALS: BP 108/61; PULSE 73; RESP 14; TEMP 36.6; O2SAT 100
[2021-01-12] MEDS: Melatonin 3 MG TABLET 6 MG PO (20:44)
[2021-01-12 23:47] VITALS: BP 92/54; PULSE 73; RESP 16; TEMP 36.3; O2SAT 96
[2021-01-13 03:33] VITALS: BP 101/58; PULSE 70; RESP 16; TEMP 36.4; O2SAT 98
[2021-01-13] MEDS: 0.9 % Sodium Chloride 1,000 ML 100 ML IVCONT (05:02)
[2021-01-13 06:30] LABS: Hematocrit 27.2 % (37-47); Mean Corpuscular HGB Conc 33.1 g/dl (31.0-35.0); Mean Corpuscular Hemoglobin 33.3 pg (27.0-33.0); Mean Corpuscular Volume 100.7 fL (80-98); Mean Platelet Volume 9.4 fL (9.4-12.3); Platelet Count 140 X10*3/uL (160-400); Red Cell Distribution Width 16.9 % (11.0-16.0); White Blood Count 3.7 X10*3/uL (4.8-10.8)
[2021-01-13 07:06] LABS: Alanine Aminotransferase 24 U/L (0-31); Albumin Level 2.8 g/dL (3.5-5.0); Alkaline Phosphatase 83 U/L (39-117); Anion Gap 10 (12-20); Aspartate Amino Transferase 60 U/L (5-31); Bilirubin Direct 0.3 mg/dL (0.0-0.5); Bilirubin Total 0.4 mg/dL (0.0-1.0); Blood Urea Nitrogen 4 mg/dL (9-16); Calcium 7.9 mg/dL (8.4-10.2); Carbon Dioxide 28 mmol/L (22-29); Chloride 106 mmol/L (96-108); Creatinine Clr Calc Pharmacy 111.5; Estimated Glomerular Filt Rate > 60; Glucose Random 91 mg/dL (60-115); Potassium 3.5 mmol/L (3.3-5.1); Sodium 140 mmol/L (135-145); Total Protein 4.3 g/dL (6.5-8.0)
[2021-01-13 07:24] LABS: Lipase 57 U/L (8-78)
[2021-01-13 07:35] VITALS: BP 91/53; PULSE 71; RESP 18; TEMP 36.6; O2SAT 96
[2021-01-13 07:36] LABS: Magnesium 1.3 mg/dL (1.6-2.6)
[2021-01-13] MEDS: Magnesium Sulfate/H2O 2 GM/50 ML PIGGYBACK IV (07:45)
[2021-01-13] MEDS: Thiamine HCL 100 MG TABLET PO (07:48)
[2021-01-13] MEDS: Famotidine 20 MG TABLET PO (07:48)
[2021-01-13] MEDS: Folic Acid 1 MG TABLET PO (07:48)
[2021-01-13] MEDS: PHENobarbitaL 15 MG TABLET 45 MG PO (07:50)
[2021-01-13] MEDS: hydrOXYzine HCL 25 MG TABLET PO (07:51)
[2021-01-13] MEDS: Potassium Chloride ER 20 MEQ TAB.ER.PRT PO (08:55)
[2021-01-13] MEDS: Magnesium Oxide 400 MG TABLET PO (08:55)
[2021-01-13 11:11] LABS: Magnesium 1.9 mg/dL (1.6-2.6)
[2021-01-13 11:35] VITALS: BP 107/60; PULSE 68; RESP 18; TEMP 36.5; O2SAT 97
--- NOTE | 2021-01-13 14:35 | MHC.CM.PN ---
PT DISCHARGED HOME SELF-CARE W/CCC INTAKE APPT ON 01/17 AND SCRIPT FOR NALTREXONE SENT TO PHARMACY, PT SELF ARRANGED TRANPSORT
--- NOTE | 2021-01-13 16:04 | PM.DS ---
DS: Providers Provider Date of Service: 01/13/21 Date of admission: 01/11/21 00:56 Primary care physician: Toy Crawford MD Consults: 01/11/21 09:52 Consult to Care Team Routine Comment: Reason for consultation: alcohol use /depression DS: Diagnosis Discharge Diagnosis (1) Alcohol withdrawal: Status: Acute DS: Medications Discharge Medications Home Medications: Previous Rx's Medication Instructions Recorded folic acid 1 mg PO DAILY #30 tab 01/13/21 magnesium oxide 400 mg PO BIDPC #60 tab 01/13/21 thiamine mononitrate (vit B1) 100 mg PO DAILY #30 tab 01/13/21 DS: Summary Hospital Course Hospital Course: 55-year-old female with a past medical history of alcohol abuse presented to the hospital with a chief complaint of agitation. Reportedly patient had alcohol Subsequently was agitated and abusive to the who called the police and subsequently brought to the ER for further evaluation. Patient denies any chest pain palpitations lightheadedness dizziness. Denies any fever chills cough. Denies any GI or symptoms. Review of all other systems is negative except mentioned above ER course: Per ER team patient on presentation noted to be intoxicated with alcohol. Calm and cooperative. Her labs noted to have hypokalemia and hypomagnesemia. No EKG changes attributes to bleed. Admitted to the hospital for further management. Hospital course Patient admitted to hospital with alcoholic intoxication agitation and due to high likelihood of withdrawal admitted to [facility] on phenobarb protocol, was treated with folic acid thiamine and Pepcid patient was seen by care team and expressed interest in referrals for therapy and Psychiatry, patient is requesting to be discharged home since she has no anxiety and has a steady gait she is being discharged to have close outpatient follow-up with therapy she has been strongly advised to abstain from alcohol, she was noted to have low potassium and magnesium likely due to poor nutrition with alcohol abuse, she has been treated with intravenous magnesium and is being discharged home on by mouth magnesium twice daily. Patient lives at home with . Time Spent with Patient Time attestation: Total time spent providing and/or coordinating discharge services: Discharge coordination time: Greater than 30 minutes Quality: Stroke Does the patient have a stroke diagnosis?: No Physical Exam Vital Signs: Vital Signs: Last Vital Signs Temp 97.7 F 01/13/21 11:35 Pulse 68 01/13/21 11:35 Resp 18 01/13/21 11:35 BP 107/60 01/13/21 11:35 Pulse Ox 97 01/13/21 11:35 Body Mass Index 25.7 Generalresting comfortably in no acute distress. Neck supple no JVD. CVS regular rate rhythm, Respiratory lungs clear to auscultation, no respiratory distress Gastrointestinal abdomen soft, nontender, bowel sounds audible Extremities no edema. Neuro nonfocal , speech clear, no tremors, steady gait. Skin no rash DS: Data Data Completed and Pending Labs on day of discharge: Laboratory Results - last 24 hr 01/13/21 01/13/21 01/13/21 05:59 05:59 05:59 WBC 3.7 L RBC 2.70 L Hgb 9.0 L Hct 27.2 L MCV 100.7 H D MCH 33.3 H MCHC 33.1 RDW 16.9 H Plt Count 140 L MPV 9.4 Absolute Nucleated RBC 0.000 Nucleated RBC % (auto) 0.0 Sodium 140 Potassium 3.5 Chloride 106 Carbon Dioxide 28 Anion Gap 10 L BUN 4 L Creatinine 0.54 Estim Creat Clear Calc 111.5 Estimated GFR > 60 Random Glucose 91 Calcium 7.9 L Magnesium 1.3 L* Total Bilirubin 0.4 Direct Bilirubin 0.3 AST 60 H ALT 24 Alkaline Phosphatase 83 D Total Protein 4.3 L D Albumin 2.8 L D Lipase 57 01/13/21 10:35 WBC RBC Hgb Hct MCV MCH MCHC RDW Plt Count MPV Absolute Nucleated RBC Nucleated RBC % (auto) Sodium Potassium Chloride Carbon Dioxide Anion Gap BUN Creatinine Estim Creat Clear Calc Estimated GFR Random Glucose Calcium Magnesium 1.9 Total Bilirubin Direct Bilirubin AST ALT Alkaline Phosphatase Total Protein Albumin Lipase Discharge Plan Discharge Patient Disposition: Home, Self-Care Discharge Diagnosis: Alcohol dependence and withdrawal Hypo magnesemia Hypokalemia Referrals: Toy Crawford MD [Primary Care Provider] - 1 Week Discharge Medications: New magnesium oxide 400 mg (241.3 mg magnesium) Tablet 400 mg PO BIDPC Qty: 60 RF: 0 folic acid 1 mg Tablet 1 mg PO DAILY Qty: 30 RF: 0 thiamine mononitrate (vit B1) 100 mg Tablet 100 mg PO DAILY Qty: 30 RF: 0 Discharge Orders: Discharge Order (Routine); Ordered 01/13/21 Ordered By: Alta Quintana Diet: advance to usual diet Activity on Discharge: As tolerated Stand Alone Forms: Patient Portal Discharge page Care Plan Goals: strongly advised to abstain from alcohol, outpatient referrals for psychiatry and counseling provided Health Concerns: Alcohol dependence and electrolyte abnormalities, take magnesium as prescribed eat healthy balanced diet and complete abstinence from alcohol Plan of Treatment: Outpatient follow-up with primary care physician Assessment: As above Discharge Date/Time: 01/13/21 14:26
[2021-01-16 03:48] LABS: Folate 5.3 ng/mL (> or = 4.0); Vitamin B12 210 pg/mL (200-900)
== END 2021-01-13 14:26 | disposition home or self-care (01) | DRG 282 ==
LOC: HO.ED 22:48 → HO.S3 01-11 01:23
PROVIDERS: Internal Medicine; Physician Assistant; Admitting Provider Hospitalist; Emergency Provider Emergency Medicine; PCP Internal Medicine; Visit Provider Hospitalist
DX: K85.20 Alcohol induced acute pancreatitis without necrosis or infection (principal); E83.42 Hypomagnesemia; K29.20 Alcoholic gastritis without bleeding; E87.6 Hypokalemia; F10.229 Alcohol dependence with intoxication, unspecified; Z20.822 Contact with and (suspected) exposure to COVID-19
CPT/HCPCS: 36415; 80048; 80053; 80076; 80320; 82607; 82746; 83690; 83735; 85025; 85027; 87324; 87449; 87635; 93005; 96365; 96366; 96368; 99285; J1650; J2560; J3475

== ENCOUNTER 2021-01-18 15:59 | Emergency (ER) | payer MEDICAID, SELFPAY ==
--- NOTE | ~2021-01-18 | XR_ITS ---
EXAMINATION: XR FOREARM, LEFT CLINICAL INFORMATION: Fall, trauma, pain COMPARISON: None TECHNIQUE: AP and lateral views of the left forearm were obtained. FINDINGS: The forearm shows no fracture or dislocation. No visible elbow capsular effusion. Bony mineralization is normal. There is normal pronator quadratus fat pad. There may be small subchondral cyst distal triquetrum. XR/XR forearm LT 2V IMPRESSION: No fracture or dislocation.
--- NOTE | ~2021-01-18 | US_ITS ---
EXAMINATION: UNILATERAL TRIPLEX SCANNING OF THE LEFT UPPER EXTREMITY CLINICAL INFORMATION: Left upper extremity swelling. COMPARISON: None. TECHNIQUE: Color-flow triplex imaging with spectral analysis and compression Doppler were performed on the left upper extremity. FINDINGS: Respiratory variation, normal compression and augmented flow are noted throughout the upper extremity. The visualized internal jugular vein, subclavian vein, axillary vein, basilic vein, brachial vein, median cubital vein and forearm venous segments show no evidence of deep venous thrombosis. The cephalic vein is not imaged, technically limited by patient motion artifact. In the area of swelling of the forearm, there is prominent subcutaneous edema, as well as a deep anechoic collection measuring approximately 2.0 x 0.6 cm which is nonspecific. There is no hypervascular peripheral rim to suggest an abscess, although the possibility of infection cannot be excluded. US/US venous duplex UE LT IMPRESSION: No evidence of deep venous thrombosis involving the left upper extremity. Nonvisualization of the cephalic vein likely due to patient motion artifact and technical limitations of the study. Diffuse subcutaneous edema. In the area of redness and swelling of the forearm, there is a deep small fluid collection of uncertain etiology. Cannot exclude the possibility of infection.
[2021-01-18 16:03] VITALS: BP 125/75; PULSE 88; RESP 18; TEMP 36.7; O2SAT 98; BMI 25.7
--- NOTE | 2021-01-18 16:27 | ED_ITS ---
HPI - Fall General Chief Complaint: Fall Stated Complaint: ETOH ARM PAIN Time Seen by Provider: 01/18/21 16:27 Source: patient Mode of arrival: ambulatory Limitations: no limitations History of Present Illness HPI Narrative: Patient with history of alcohol abuse last night fell from the couch landed on her left forearm complaining of swelling and pain in the left forearm no other injuries no loss of consciousness no head injury no seizures Related Data Previous Rx's Medication Instructions Recorded folic acid 1 mg PO DAILY #30 tab 01/13/21 magnesium oxide 400 mg PO BIDPC #60 tab 01/13/21 thiamine mononitrate (vit B1) 100 mg PO DAILY #30 tab 01/13/21 amoxicillin-pot clavulanate 1 tab PO BID #20 tab 01/18/21 [Augmentin] Allergies Allergy/AdvReac Type Severity Reaction Status Date / Time No Known Allergies Allergy Unverified 05/04/20 15:25 Review of Systems Review of Systems: Constitutional : No Weight loss, No Fever, No Chills ENT/Mouth : No sore throat, No Rhinorrhea Eyes: No Eye Pain, No Swelling Cardiovascular : No Chest Pain, no palpitations Respiratory : No Cough, No Sputum, no shortness of breath Gastrointestinal : no Nausea, No Vomiting, No Diarrhea, No abdominal Pain, no black stools Genitourinary : No Dysuria, No Urinary Frequency Musculoskeletal : No joint pain, No Myalgias, No Joint Swelling Skin : No Skin Lesions, No rash Neuro : No Weakness, No Numbness, No Dizziness, No Headache Psych : No Anxiety/Panic, No Depression Heme/Lymph: No Bruising, No Lymphadenopathy Endocrine : No Polyuria, No Polydipsia All other systems reviewed and are negative [facility] Past Medical History Medical History Alcohol abuse Endometriosis Surgical History History of endometrial ablation Social History Social History Household Members: Spouse Household Members Other:: mother Housing: House Do you presently have visiting nurse or other home services: No Alcohol intake: current Alcohol intake frequency: 3 or more drinks per day Al cohol type: beer, wine and hard liquor Patient Tobacco Use Status: Current everyday Tobacco user Second Hand Smoke Exposure: No Use of substances other than those prescribed or required for medical reasons: No Advance Directives: No Advance Directives Information Provided: Yes Patient : No service: No Current occupational status: employed Physical Exam Vital Signs: Vital Signs: Last Vital Signs Temp 99.3 F 01/18/21 18:56 Pulse 103 H 01/18/21 18:56 Resp 17 01/18/21 18:56 BP 125/82 01/18/21 18:56 Pulse Ox 98 01/18/21 18:56 Body Mass Index 25.7 Appearance: Alert. Oriented X3. No acute distress. Eyes: PERRLA, No Nystagmus ENT: Pharynx normal. Oral Mucosa moist Neck: Normal inspection. Neck supple. CVS: Normal heart rate and rhythm. Pulses normal. Respiratory: No respiratory distress. Equal air entry bilateral, no wheezing/rales/rhonchi Abdomen: Soft and nontender. Bowel sounds are present, no mass palpable, no CVA tenderness Skin: Skin warm and dry. Normal skin color. Normal skin turgor. Extremities: No lower extremity edema. No calf tenderness left forearm swollen tender neurovascular intact no increased pain in active or passive movement of the wrist, no signs of compartment syndrome Neuro: Oriented X 3. No motor deficit. No sensory deficit.No cerebellar signs , cranial nerves II-XII intact Extrem: Elbow/forearm/wrist images: 1. Tender swelling right forearm neurovascular intact MDM - Fall MDM Narrative Medical decision making narrative: Patient's x-ray left forearm negative for any fracture ultrasound negative for DVT or slight amount of fluid collection likely from hematoma no signs of infection but will give prescription for Augmentin Discharge Plan Discharge Clinical Impression: Contusion Qualifiers: Encounter type: initial encounter Contusion area: forearm Laterality: right Qualified Code(s): S50.11XA - Contusion of right forearm, initial encounter Patient Disposition: Home, Self-Care Instructions: Contusion in Adults (ED) Additional Instructions: Local care as advised apply ice Take antibiotics Report to the ER if worsening of swelling / pain Prescriptions: New amoxicillin-pot clavulanate [Augmentin] 875-125 mg tablet 1 tab PO BID Qty: 20 RF: 0 No Action magnesium oxide 400 mg (241.3 mg magnesium) Tablet 400 mg PO BIDPC Qty: 60 RF: 0 folic acid 1 mg Tablet 1 mg PO DAILY Qty: 30 RF: 0 thiamine mononitrate (vit B1) 100 mg Tablet 100 mg PO DAILY Qty: 30 RF: 0 Interventions: ED Discharge Assessment Last Done: 01/18/21 19:57 Discharge Date/Time: 01/18/21 19:57
[2021-01-18 17:39] VITALS: BP 114/67; PULSE 95; RESP 17; TEMP 36.7; O2SAT 100
[2021-01-18 18:56] VITALS: BP 125/82; PULSE 103; RESP 17; TEMP 37.4; O2SAT 98
[2021-01-18] MEDS: Amoxicillin/Potassium Clav 875 MG TABLET PO (19:03)
== END 2021-01-18 19:57 | disposition home or self-care (01) ==
PROVIDERS: Emergency Provider Internal Medicine; PCP Internal Medicine
DX: S50.11XA Contusion of right forearm, initial encounter (principal); W08.XXXA Fall from other furniture, initial encounter; M79.632 Pain in left forearm; R22.32 Localized swelling, mass and lump, left upper limb; F10.20 Alcohol dependence, uncomplicated; F17.210 Nicotine dependence, cigarettes, uncomplicated; Y93.89 Activity, other specified; Y92.018 Other place in single-family (private) house as the place of occurrence of the external cause; Y99.9 Unspecified external cause status
CPT/HCPCS: 73090; 93971; 99284

== ENCOUNTER → 2021-02-08 09:02 | Outpatient (BNVA) | payer MEDICAID, SELFPAY | PROVIDERS: PCP Internal Medicine; Visit Provider Nurse Practitioner Psychiatric/Mental Health | DX: Z72.89 Other problems related to lifestyle (principal) | CPT/HCPCS: 80305; 99212 ==

== ENCOUNTER → 2021-03-06 09:59 | Outpatient (BNVA) | payer MEDICAID, SELFPAY | PROVIDERS: PCP Internal Medicine; Visit Provider Nurse Practitioner Psychiatric/Mental Health | DX: F10.21 Alcohol dependence, in remission (principal) | CPT/HCPCS: 80305; 81025; 96372; 99211 ==

== ENCOUNTER → 2021-04-05 15:19 | Outpatient (BNVA) | payer MEDICAID, SELFPAY | PROVIDERS: Visit Provider Nurse Practitioner Psychiatric/Mental Health ==

== ENCOUNTER 2021-04-19 14:36 | Outpatient (REF) | payer MEDICAID, SELFPAY ==
[2021-04-19 17:04] LABS: Alanine Aminotransferase 21 U/L (0-31); Albumin Level 4.9 g/dL (3.5-5.0); Alkaline Phosphatase 122 U/L (39-117); Aspartate Amino Transferase 52 U/L (5-31); Bilirubin Direct 0.5 mg/dL (0.0-0.5); Bilirubin Total 1.1 mg/dL (0.0-1.0); Total Protein 7.3 g/dL (6.5-8.0)
[2021-04-19 17:37] LABS: Folate 15.4 ng/mL (> or = 4.0); Vitamin B12 313 pg/mL (200-900)
== END 2021-04-19 14:37 | disposition home or self-care (01) ==
LOC: HO.LAB 14:36
PROVIDERS: Visit Provider Nurse Practitioner Psychiatric/Mental Health
DX: Z72.89 Other problems related to lifestyle (principal); Z79.899 Other long term (current) drug therapy
CPT/HCPCS: 36415; 80076; 80305; 82607; 82746; 96372; 99212; J2315

== ENCOUNTER → 2021-05-17 14:36 | Outpatient (BNVA) | payer MEDICAID, SELFPAY | PROVIDERS: Visit Provider Nurse Practitioner Psychiatric/Mental Health | DX: Z72.89 Other problems related to lifestyle (principal) | CPT/HCPCS: 80305; 96372; 99212; J2315 ==

== ENCOUNTER → 2021-06-14 14:38 | Outpatient (BNVA) | payer MEDICAID, SELFPAY | PROVIDERS: Visit Provider Nurse Practitioner Psychiatric/Mental Health | DX: Z51.81 Encounter for therapeutic drug level monitoring (principal); F10.20 Alcohol dependence, uncomplicated | CPT/HCPCS: 80305; 96372; 99212; J2315 ==

== ENCOUNTER → 2021-07-11 09:25 | Outpatient (BNVA) | payer MEDICAID, SELFPAY | PROVIDERS: Visit Provider Nurse Practitioner Psychiatric/Mental Health | DX: F10.20 Alcohol dependence, uncomplicated (principal); Z51.81 Encounter for therapeutic drug level monitoring; Z79.899 Other long term (current) drug therapy | CPT/HCPCS: 80305; 96372; 99212; J2315 ==

== ENCOUNTER 2021-07-18 16:11 | Outpatient (REF) | payer MEDICAID, SELFPAY ==
--- NOTE | ~2021-07-18 | MM_ITS ---
EXAMINATION: MM SCREENING DIGITAL BREAST TOMOSYNTHESIS, BILATERAL CLINICAL INFORMATION: Screening. Asymptomatic. The lifetime risk of breast cancer based on the Tyrer-Cuzick Model is 5%. COMPARISON: Mammography: 04/06/2020, 04/01/2019, 04/10/2017, outside exam 12/08/2015 ([facility]) TECHNIQUE: Digital breast tomosynthesis is performed in both the craniocaudal and mediolateral oblique views along with computer-aided detection (CAD). Synthesized 2D images are generated from the tomosynthesis. FINDINGS: There are scattered areas of fibroglandular density (ACR BI-RADS breast composition Category b). There are no significant masses, abnormal calcifications, or other abnormalities. Parenchymal pattern is similar to prior exam. There are scattered bilateral predominantly vascular calcifications. The axilla are unremarkable. No significant changes. MM/MM tomosynthesis screening BI IMPRESSION: No mammographic evidence of malignancy. ASSESSMENT: BI-RADS 2: Benign RECOMMENDATION: Routine annual mammography screening. This patient's information was entered into a reminder system with a target due date for their next mammogram.
== END 2021-07-18 16:12 | disposition home or self-care (01) ==
LOC: HO.MAMMO 16:11
PROVIDERS: Visit Provider Internal Medicine
DX: Z12.31 Encounter for screening mammogram for malignant neoplasm of breast (principal)
CPT/HCPCS: 77063; 77067

== ENCOUNTER → 2021-08-09 09:14 | Outpatient (BNVA) | payer MEDICAID, SELFPAY | PROVIDERS: Visit Provider Nurse Practitioner Psychiatric/Mental Health | DX: Z51.81 Encounter for therapeutic drug level monitoring (principal); F10.20 Alcohol dependence, uncomplicated | CPT/HCPCS: 80305; 96372; 99212 ==

== ENCOUNTER 2021-08-30 09:38 | Outpatient (REF) | payer MEDICAID, SELFPAY | END 2021-08-30 09:39 | disposition home or self-care (01) | LOC: HO.LAB 09:38 | PROVIDERS: Visit Provider Internal Medicine | DX: Z13.89 Encounter for screening for other disorder (principal) ==

== ENCOUNTER → 2021-09-10 15:24 | Outpatient (BNVA) | payer MEDICAID, SELFPAY | PROVIDERS: Visit Provider Nurse Practitioner Psychiatric/Mental Health | DX: Z51.81 Encounter for therapeutic drug level monitoring (principal); F10.20 Alcohol dependence, uncomplicated | CPT/HCPCS: 80305; 81025; 96372 ==

== ENCOUNTER → 2021-10-18 15:28 | Outpatient (BNVA) | payer MEDICAID, SELFPAY | PROVIDERS: Visit Provider Nurse Practitioner Psychiatric/Mental Health | DX: F10.20 Alcohol dependence, uncomplicated (principal); F17.210 Nicotine dependence, cigarettes, uncomplicated | CPT/HCPCS: 80305; 96372; 99212 ==

== ENCOUNTER → 2021-11-15 14:12 | Outpatient (BNVA) | payer MEDICAID, SELFPAY | PROVIDERS: Visit Provider Nurse Practitioner Psychiatric/Mental Health | DX: F10.10 Alcohol abuse, uncomplicated (principal); Z51.81 Encounter for therapeutic drug level monitoring; Z79.899 Other long term (current) drug therapy | CPT/HCPCS: 80305; 81025; 96372; 99212 ==

== ENCOUNTER 2021-11-27 08:48 | Outpatient (REF) | payer MEDICAID, SELFPAY ==
[2021-11-27 11:27] LABS: MANUAL DIFF FLAG NO
[2021-11-27 11:31] LABS: Basophils Percent Auto 0.4 % (0-2); Eosinophils Absolute Auto 0.3 X10*3/uL (0.0-0.4); Eosinophils Percent Auto 6.1 % (0-4); Hematocrit 39.1 % (37.0-47.0); Hemoglobin 12.8 g/dl (12.0-16.0); Imm Gran Abs Auto 0.01 X10*3/uL (0.00-0.03); Imm Gran Pct Auto 0.2 % (0.0-0.4); Lymphocytes Absolute Auto 2.6 X10*3/uL (1.2-4.9); Lymphocytes Percent Auto 45.7 % (20-40); Mean Corpuscular HGB Conc 32.7 g/dl (31.0-35.0); Mean Corpuscular Hemoglobin 28.6 pg (27.0-33.0); Mean Corpuscular Volume 87.3 fL (80.0-98.0); Mean Platelet Volume 9.9 fL (9.4-12.3); Monocytes Absolute Auto 0.5 X10*3/uL (0.1-1.2); Monocytes Percent Auto 8.8 % (2-11); Neutrophils Absolute Auto 2.2 x10*3/uL (2.0-8.3); Neutrophils Percent Auto 38.8 % (45-73); Platelet Count 236 X10*3/uL (160-400); Red Blood Count 4.48 X10*6/uL (4.20-5.50); Red Cell Distribution Width 13.1 % (11.0-16.0); White Blood Count 5.6 X10*3/uL (4.8-10.8)
[2021-11-27 11:55] LABS: Alanine Aminotransferase 21 U/L (0-31); Albumin Level 4.2 g/dL (3.5-5.0); Alkaline Phosphatase 106 U/L (39-117); Anion Gap 12 (12-20); Aspartate Amino Transferase 22 U/L (5-31); Bilirubin Total 0.4 mg/dL (0.0-1.0); Blood Urea Nitrogen 16 mg/dL (9-16); Calcium 9.8 mg/dL (8.4-10.2); Carbon Dioxide 28 mmol/L (22-29); Chloride 103 mmol/L (96-108); Cholesterol 253 mg/dL; Estimated Glomerular Filt Rate > 60; Glucose Fasting 97 mg/dL (60-99); HDL Cholesterol 65 mg/dL; LDL Cholesterol Calculated 163 mg/dl; Potassium 4.3 mmol/L (3.3-5.1); Sodium 139 mmol/L (135-145); Total Protein 6.8 g/dL (6.5-8.0); Triglycerides 127 mg/dL
[2021-11-27 12:19] LABS: Free T4 (Free Thyroxine) 0.82 ng/dL (0.71-1.85); Thyroid Stimulating Hormone 3.12 uIU/mL (0.32-4.0)
== END 2021-11-27 08:49 | disposition home or self-care (01) ==
LOC: HO.HMGCLDS 08:48
PROVIDERS: Visit Provider Internal Medicine
DX: E03.9 Hypothyroidism, unspecified (principal); R63.5 Abnormal weight gain; R79.89 Other specified abnormal findings of blood chemistry
CPT/HCPCS: 36415; 80053; 80061; 84439; 84443; 85025

== ENCOUNTER → 2021-12-13 14:34 | Outpatient (BNVA) | payer MEDICAID, SELFPAY | PROVIDERS: PCP Internal Medicine; Visit Provider Nurse Practitioner Psychiatric/Mental Health | DX: Z51.81 Encounter for therapeutic drug level monitoring (principal); F10.20 Alcohol dependence, uncomplicated | CPT/HCPCS: 80305; 96372; 99212; J2315 ==

== ENCOUNTER → 2022-01-21 15:32 | Outpatient (BNVA) | payer MEDICAID, SELFPAY | PROVIDERS: Visit Provider Nurse Practitioner Psychiatric/Mental Health | DX: Z51.81 Encounter for therapeutic drug level monitoring (principal); F10.20 Alcohol dependence, uncomplicated | CPT/HCPCS: 96372; 99211; J2315 ==

== ENCOUNTER → 2022-02-21 14:18 | Outpatient (BNVA) | payer MEDICAID, SELFPAY | PROVIDERS: PCP Internal Medicine; Visit Provider Nurse Practitioner Psychiatric/Mental Health | DX: F10.20 Alcohol dependence, uncomplicated (principal) | CPT/HCPCS: 80305; 81025; 96372; 99212; J2315 ==

== ENCOUNTER → 2022-03-21 15:21 | Outpatient (BNVA) | payer MEDICAID, SELFPAY | PROVIDERS: PCP Internal Medicine; Visit Provider Nurse Practitioner Psychiatric/Mental Health | DX: F10.20 Alcohol dependence, uncomplicated (principal); Z51.81 Encounter for therapeutic drug level monitoring; Z79.899 Other long term (current) drug therapy | CPT/HCPCS: 96372; 99212 ==

== ENCOUNTER → 2022-04-25 15:16 | Outpatient (BNVA) | payer MEDICAID, SELFPAY | PROVIDERS: PCP Internal Medicine; Visit Provider Nurse Practitioner Psychiatric/Mental Health | DX: F10.21 Alcohol dependence, in remission (principal); Z51.81 Encounter for therapeutic drug level monitoring; Z79.899 Other long term (current) drug therapy | CPT/HCPCS: 80305; 81025; 96372; 99212 ==

== ENCOUNTER → 2022-06-06 15:14 | Outpatient (BNVA) | payer MEDICAID, SELFPAY | PROVIDERS: PCP Internal Medicine; Visit Provider Nurse Practitioner Psychiatric/Mental Health | DX: Z51.81 Encounter for therapeutic drug level monitoring (principal); F10.21 Alcohol dependence, in remission; Z32.01 Encounter for pregnancy test, result positive | CPT/HCPCS: 80305; 81025; 96372; 99212 ==

== ENCOUNTER 2022-07-08 15:34 | Outpatient (REF) | payer MEDICAID, SELFPAY ==
[2022-07-08 18:09] LABS: Alanine Aminotransferase 21 U/L (0-31); Albumin Level 4.4 g/dL (3.5-5.0); Alkaline Phosphatase 104 U/L (39-117); Aspartate Amino Transferase 18 U/L (5-31); Bilirubin Direct < 0.2 mg/dL (0.0-0.5); Bilirubin Total 0.3 mg/dL (0.0-1.0)
== END 2022-07-08 15:35 | disposition home or self-care (01) ==
LOC: HO.LAB 15:34
PROVIDERS: PCP Internal Medicine; Visit Provider Nurse Practitioner Psychiatric/Mental Health
DX: F10.21 Alcohol dependence, in remission (principal); Z79.899 Other long term (current) drug therapy
CPT/HCPCS: 36415; 80076; 80305; 81025; 96372; 99212

== ENCOUNTER → 2022-08-26 15:16 | Outpatient (BNVA) | payer MEDICAID, SELFPAY | PROVIDERS: PCP Internal Medicine; Visit Provider Nurse Practitioner Psychiatric/Mental Health | DX: F10.21 Alcohol dependence, in remission (principal) | CPT/HCPCS: 80305; 96372; 99212 ==

== ENCOUNTER → 2022-09-25 15:37 | Outpatient (BNVA) | payer MEDICAID, SELFPAY | PROVIDERS: PCP Internal Medicine; Visit Provider Nurse Practitioner Psychiatric/Mental Health | DX: Z51.81 Encounter for therapeutic drug level monitoring (principal); F10.21 Alcohol dependence, in remission | CPT/HCPCS: 80305; 96372; 99212 ==

== ENCOUNTER → 2022-10-24 14:52 | Outpatient (BNVA) | payer MEDICAID, SELFPAY | PROVIDERS: PCP Internal Medicine; Visit Provider Nurse Practitioner Psychiatric/Mental Health | DX: Z51.81 Encounter for therapeutic drug level monitoring (principal); F10.21 Alcohol dependence, in remission | CPT/HCPCS: 96372; 99212 ==

== ENCOUNTER 2022-11-20 14:54 | Outpatient (REF) | payer MEDICAID, SELFPAY ==
[2022-11-20 16:34] LABS: Alanine Aminotransferase 16 U/L (0-31); Albumin Level 4.3 g/dL (3.5-5.0); Alkaline Phosphatase 99 U/L (39-117); Aspartate Amino Transferase 21 U/L (5-31); Bilirubin Direct < 0.2 mg/dL (0.0-0.5); Bilirubin Total 0.4 mg/dL (0.0-1.0); Total Protein 6.7 g/dL (6.5-8.0)
== END 2022-11-20 14:55 | disposition home or self-care (01) ==
LOC: HO.LAB 14:54
PROVIDERS: PCP Internal Medicine; Visit Provider Nurse Practitioner Psychiatric/Mental Health
DX: F10.21 Alcohol dependence, in remission (principal); Z51.81 Encounter for therapeutic drug level monitoring; Z79.899 Other long term (current) drug therapy
CPT/HCPCS: 36415; 80076; 96372; 99212

== ENCOUNTER → 2022-12-18 15:22 | Outpatient (BNVA) | payer MEDICAID, SELFPAY | PROVIDERS: PCP Internal Medicine; Visit Provider Nurse Practitioner Psychiatric/Mental Health | DX: Z51.81 Encounter for therapeutic drug level monitoring (principal); F10.21 Alcohol dependence, in remission; Z79.899 Other long term (current) drug therapy | CPT/HCPCS: 96372; 99212 ==

== ENCOUNTER → 2023-01-21 15:23 | Outpatient (BNVA) | payer MEDICAID, SELFPAY | PROVIDERS: PCP Internal Medicine; Visit Provider Nurse Practitioner Psychiatric/Mental Health | DX: F10.20 Alcohol dependence, uncomplicated (principal) | CPT/HCPCS: 96372; 99212 ==

== ENCOUNTER 2023-02-24 15:19 | Outpatient (AMB) | payer MEDICAID, SELFPAY ==
--- NOTE | 2023-02-24 15:21 | MHC.OFFVIS ---
Intake Vital Signs 02/24/23 15:26 BP 110/72 Blood Pressure Location Lt radial Position Sitting Pulse 84 Pulse Source Pulse Oximeter Pulse Oximetry (%) 97 Oxygen Delivery Method Room Air Intake Visit Reasons: mariano inj Intake Note: the patient is here for a mariano inj Manager Inpatient Required: No Allergies No Known Allergies Allergy (Verified 02/24/23 15:27) Do you need a note to return to daycare/school/sports/work: No HPI mariano inj HPI Details Patient presents for follow up and vivitrol injection Doing well with recovery Still working FT still abstaining from alcohol--working on their relationship Tolerating injection No questions or concerns at this time PFSH Medical History Alcohol abuse Alcohol dependence Alcohol use disorder Endometriosis Surgical History History of endometrial ablation Social History (Updated 02/25/23 @ 13:37 by Jennifer Silva CNP) Household Members: Spouse Household Members Other:: mother Housing: House Do you presently have visiting nurse or other home services: No Alcohol intake: former Patient Tobacco Use Status: Current everyday Tobacco user Second Hand Smoke Exposure: No service: No Current occupational status: employed Review of Systems Const Reports as per HPI and Reports no additional complaints Physical Exam Vital Signs: Last Vital Signs Pulse 84 02/24/23 15:26 BP 110/72 02/24/23 15:26 Pulse Ox 97 02/24/23 15:26 Oxygen Delivery Method Room Air 02/24/23 15:26 Const General: cooperative, healthy appearing, comfortable and alert Nutritional Appearance: average body habitus Orientation/consciousness: patient oriented x3 Limitations: no limitations Neuro General: patient oriented x3 Psych Appearance: grossly normal Mental Status: mental status grossly normal Speech and movement: Normal speech and movement present Affect: normal affect Attitude: cooperative Thought process: Normal thought process present Thought content: Normal thought content present Insight: Good insight present (Psych) Judgement: Good judgement present (Psych) Office Meds Vivitrol ER Performing Provider: Jennifer Silva CNP Administered by: Linda Barney RN on 02/24/23 16:47 Dose Route Admin Location Lot Number Expiration Date 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 INJ required 3 attempts, needle blocked x's 2, patient laid down on INJ table, 3rd attempt successful. Assessment & Plan Assessment & Plan (1) Alcohol use disorder, moderate, in sustained remission: Comment: doing well, no concerns Tolerating monthly vivitrol well. Code(s): F10.21 - Alcohol dependence, in remission Plan 1. Continue with monthly vivitrol injection. 2. Recovery support discussion. 3. Follow-up in one month. 4. Lexapro refilled Orders: Orders AMB Naltrexone Injection Patient Supplied 02/24/23 F10.21 - Alcohol dependence, in remission Medications: New escitalopram oxalate (Lexapro) 20 mg PO DAILY 90 tabs 3RF Discontinued sertraline Discontinued Reason: Patient no longer taking 100 mg PO DAILY 30 tabs 3RF Coding Level of Care Code Est Pt Level 3 (45371) Diagnoses Alcohol use disorder, moderate, in sustained remission F10.21
[2023-02-24 15:26] VITALS: BP 110/72; PULSE 84; O2SAT 97
== END 2023-02-24 16:18 | disposition home or self-care (01) ==
LOC: HO.HCC 15:19
PROVIDERS: PCP Internal Medicine; Visit Provider Nurse Practitioner Psychiatric/Mental Health
DX: F10.21 Alcohol dependence, in remission (principal)
CPT/HCPCS: 99213; J2315

== ENCOUNTER → 2023-02-24 15:19 | Outpatient (BNVA) | payer MEDICAID, SELFPAY | PROVIDERS: PCP Internal Medicine; Visit Provider Nurse Practitioner Psychiatric/Mental Health | DX: F10.21 Alcohol dependence, in remission (principal); Z79.899 Other long term (current) drug therapy | CPT/HCPCS: 96372; 99213 ==

== ENCOUNTER 2023-02-25 15:17 | Outpatient (REF) | payer MEDICAID, SELFPAY ==
--- NOTE | ~2023-02-25 | US_ITS ---
EXAMINATION: US PELVIS LIMITED (BLADDER) CLINICAL INFORMATION: Urgency. Rule out retention. COMPARISON: CT abdomen and pelvis 12/06/2020. Ultrasound abdomen complete 02/03/2019. TECHNIQUE: Real-time imaging of the bladder. FINDINGS: BLADDER: Well distended and normal. Bilateral ureteral jets are not demonstrated. Prevoid bladder volume is 314 mL. Postvoid bladder volume is 15.2 mL. ADDITIONAL FINDINGS: An anteverted uterus is present with 2 fibroids measured at 2.3 and 2.2 cm. The right ovary is seen and contains multiple benign-appearing cysts, the largest measuring 2.6 cm. US/US bladder IMPRESSION: Normal-appearing bladder. Uterine fibroids. Benign-appearing right ovarian cysts. Similar findings could be seen on 12/06/2020 CT scan.
== END 2023-02-25 15:18 | disposition home or self-care (01) ==
LOC: HO.HMGCX 15:17
PROVIDERS: PCP Internal Medicine; Visit Provider Internal Medicine
DX: R39.15 Urgency of urination (principal)
CPT/HCPCS: 76857

== ENCOUNTER 2023-04-24 13:28 | Outpatient (AMB) | payer MEDICAID, SELFPAY ==
--- NOTE | 2023-04-24 13:30 | AM.OFFVISNUR ---
Intake Vital Signs 04/24/23 13:35 BP 110/70 Blood Pressure Location Lt radial Position Sitting Pulse 75 Pulse Source Pulse Oximeter Pulse Oximetry (%) 98 Oxygen Delivery Method Room Air Intake Visit Reasons: mariano inj Intake Note: the patient presents for a mariano inj Setup Operator Required: No Allergies No Known Allergies Allergy (Verified 04/24/23 13:36) Do you need a note to return to daycare/school/sports/work: No Coding
[2023-04-24 13:35] VITALS: BP 110/70; PULSE 75; O2SAT 98
== END 2023-04-24 14:24 | disposition home or self-care (01) ==
LOC: HO.HCC 13:28
PROVIDERS: PCP Internal Medicine
DX: F10.21 Alcohol dependence, in remission (principal)
CPT/HCPCS: J2315

== ENCOUNTER → 2023-04-24 13:28 | Outpatient (BNVA) | payer MEDICAID, SELFPAY | PROVIDERS: PCP Internal Medicine | DX: F10.21 Alcohol dependence, in remission (principal); Z51.81 Encounter for therapeutic drug level monitoring; Z79.899 Other long term (current) drug therapy | CPT/HCPCS: 96372 ==

== ENCOUNTER 2023-05-13 16:09 | Emergency (ER) | payer MEDICAID, SELFPAY ==
--- NOTE | ~2023-05-13 | CT_ITS ---
EXAMINATION: CT ABDOMEN AND PELVIS WITH CONTRAST CLINICAL INFORMATION: Left lower quadrant pain and diarrhea COMPARISON: CT abdomen pelvis 12/06/2020 TECHNIQUE: Multidetector volumetric images were obtained from the superior aspect of the liver through the pubic symphysis following administration 85 mL of Omnipaque 350 intravenous contrast. Sagittal and coronal reformatted images were obtained on the technologist's workstation. Oral contrast: No This CT examination was performed using dose optimization techniques as appropriate, variously including the following: *Automated exposure control *Adjustment of mA and/or kV according to patient size (this includes techniques or standardized protocols for targeted exams where dose is matched to indication/reason for exam; i.e. extremities or head) *Use of iterative reconstruction technique DLP: 823 mGy-cm FINDINGS: LUNG BASES: The visualized lung bases are unremarkable. LIVER, GALLBLADDER, AND BILIARY TREE: The liver is normal in size, shape, and attenuation. No focal biliary ductal dilatation is present. A lobular 2.7 cm mass is present just beneath the dome of the right hemidiaphragm. This is unchanged when compared to the prior 2020 study and has characteristics consistent with a benign cavernous hemangioma. The gallbladder contains a few dependent calcified gallstones but otherwise is unremarkable with no evidence of gallbladder wall thickening, or obvious pericholecystic inflammatory changes. PANCREAS: Unremarkable. SPLEEN: Unremarkable. ADRENAL GLANDS: Unremarkable. KIDNEYS AND URETERS: The kidneys are normal in size, shape, and attenuation. No hydronephrosis, hydroureter, or calculi seen. No perinephric stranding. BLADDER: Empty but unremarkable GASTROINTESTINAL TRACT: The small and large bowel are unremarkable. The appendix is unremarkable. ABDOMINAL WALL: No significant hernia is appreciated. 2.6 cm lobular fluid collection right buttock (3:57) probably secondary to trauma or injection. LYMPH NODES: No retroperitoneal lymphadenopathy. VASCULAR: Unremarkable. PELVIC VISCERA: Anteverted lobular uterus with multiple fibroids the largest subserosal near the fundus measuring 2.3 cm. An abnormal adnexal mass is not seen. No free intraperitoneal fluid. Some small cysts are present in the right ovary the largest measuring 2.2 cm. On the 12/06/2020 CT scan, this appeared similar. OSSEOUS STRUCTURES: Unremarkable. Minimal grade 1 anterolisthesis L4 upon L5. CT/CT abdomen pelvis w IV con IMPRESSION: 1. A cause for the patient's left lower quadrant pain and diarrhea has not been found. 2. Incidental note made of cholelithiasis without cholecystitis, stable hepatic hemangioma, uterine fibroids and small right ovarian cysts. Fleischner guidelines were followed.
[2023-05-13 16:25] VITALS: BP 130/60; PULSE 60; RESP 16; TEMP 36.7; O2SAT 98; BMI 34.0
--- NOTE | 2023-05-13 16:26 | ED.GENADULT ---
HPI - General Adult General Chief complaint: Abdominal Pain Stated complaint: Referred by PCP, pain left side of abdomen 7 days Time Seen by Provider: 05/13/23 21:58 Source: patient Mode of arrival: ambulatory Limitations: no limitations History of Present Illness HPI narrative: Patient is a 58-year-old female who presents to the emergency department for evaluation abdominal pain. She reports 1 week with left lower quadrant abdominal pain. Initially was experiencing constipation to she took laxatives in addition to simethicone but did not have improvement in this pain. For the past few days she has been experiencing loose/watery stools every 4 hours. Denies hematochezia or melena. She has associated Nausea but no vomiting. She endorses urinary urgency and feeling as though she is unable to completely void but denies dysuria, hematuria or frequency, does not feel consistent with prior urinary tract infections. She does state that the pain is at times exacerbated with particular movements, and endorses heavy lifting for her job, although she has not palpated any abdominal masses. Denies upper respiratory symptoms, fevers, chills, chest pain, shortness of breath. Endorses a history of colonoscopy approximately 4 years ago with polypectomy a precancerous lesions, denies family history of colon cancer. Related Data Previous Rx's Medication Instructions Recorded naltrexone 50 mg tablet 50 mg PO DAILY #30 tabs 03/21/22 escitalopram oxalate 20 mg tablet 20 mg PO DAILY #90 tabs 02/24/23 (Lexapro) naltrexone microspheres 380 mg 380 mg IM Q4W #1 ea 04/02/23 intramuscular suspension,extended release (Vivitrol) cefuroxime axetil 500 mg tablet 500 mg PO BID #13 tabs 05/14/23 Allergies Allergy/AdvReac Type Severity Reaction Status Date / Time No Known Allergies Allergy Verified 04/24/23 13:36 Review of Systems Review of Systems: Yes all other systems are reviewed and are negative [facility] Past Medical History Attestation statement: The following information was validated with the patient. Source: old records reviewed Medical History Alcohol use disorder Alcohol dependence Endometriosis Alcohol abuse Surgical History History of endometrial ablation Social History Social History (Updated 02/25/23 @ 13:37 by Jennifer Silva CNP) Household Members: Spouse Household Members Other:: mother Housing: House Do you presently have visiting nurse or other home services: No Alcohol intake: former Patient Tobacco Use Status: Current everyday Tobacco user Second Hand Smoke Exposure: No Advance Directives: No Advance Directives Information Provided: No service: No Current occupational status: employed Physical Exam ED Vital Signs: Vital Signs - 24 hr 05/13/23 16:25 Temperature 98.1 F Pulse Rate 60 Respiratory Rate 16 Blood Pressure 130/60 Pulse Oximetry 98 Oxygen Delivery Method Room Air BMI result Body Mass Index 34.0 Appearance: Alert.?Oriented to person, place and time. No acute distress.?Normal affect. Eyes: Pupils equal, round and reactive to light.? ENT: Pharynx normal.?? Neck: Normal inspection.? Neck supple.?? CVS: Heart sounds normal. Normal heart rate and rhythm.? Pulses normal.?? Respiratory: No respiratory distress.? Lung sounds clear to auscultation bilaterally?? Abdomen: Soft with left lower quadrant tenderness upon palpation. No CVA tenderness. No rebound tenderness. No rigidity. No guarding. Normoactive bowel sounds. No pulsatile mass.?? Skin: Skin warm and dry.? Normal skin color.? Extremities: No lower extremity edema.? Neuro: Moves all extremities spontaneously. Sensation intact bilaterally. Ambulates with normal steady gait. Course Course Course Narrative: This is an RME: Additional HPI, ROS, PE not included below will be deferred to primary provider. 58 y o female presenting referred by PCP for LLQ pain x7 days. Also reporting associated diarrhea and difficulty with urination. Denies fevers, chills, chest pain, shortness of breath, hematuria. Plan -- labs, UA Reevaluation(s) Reevaluation #1: Labs overall unremarkable. CT of the abdomen and pelvis without identifiable cause for left lower abdominal pain. Incidental notation of coli cholelithiasis without evidence of cholecystitis, upon examination she does not have epigastric or right upper quadrant tenderness upon palpation, negative Norman sign. Reviewed these findings with patient, it symptoms may be attributed to possible urinary tract infection versus muscular strain due to lifting at work. Will treat with cefuroxime at this time, pending urine culture. Advised outpatient follow-up with primary care provider. Reviewed worrisome signs and symptoms that would warrant re-evaluation in the emergency department. All questions answered. Stable for discharge. Time: 00:56 Medications Administered Discontinued Medications Generic Name Dose Route Start Last Admin Trade Name Kamar PRN Reason Stop Dose Admin Sodium Chloride 1,000 mls @ 999 mls/hr 05/13/23 23:00 05/13/23 23:24 Ns IV 05/14/23 00:00 999 mls/hr .Q1H1M GIUSEPPE Administration Iohexol 85 ml 05/13/23 23:52 05/13/23 23:52 Iohexol 350 Mg/Ml 100 Ml Infus..Btl IV 05/13/23 23:53 85 ml ONCE ONE Administration Ketorolac Tromethamine 30 mg 05/13/23 22:53 05/13/23 23:25 Ketorolac Tromethamine 30 Mg/Ml Vial IVPUSH 05/13/23 22:54 30 mg ONCE ONE Administration Medical Decision Making Medical Decision Making [facility] Narrative: Patient is a 58-year-old female with past medical history of alcohol use disorder in remission/sobriety for the past 2 years receiving Vivitrol injection, presenting to emergency department for evaluation of abdominal pain as per HPI. At the time my examination she is overall well-appearing. She does have notable left lower quadrant tenderness but does not have associated rigidity or guarding. I reviewed labs obtained from her initial workup there is no evidence of leukocytosis, anemia, her CMP is overall unremarkable and lipase is within normal limits. Urinalysis with trace leukocyte esterase and 1+ bacteria, no hematuria, given she is experiencing urinary urgency concern for possible early urinary tract infection. Will obtain CT of the abdomen and pelvis for further evaluation, differential diagnosis to include hydronephrosis, ureteral calculi, pyelonephritis, diverticulitis, colitis, bowel obstruction, appendicitis. Patient received 1 L normal saline IV fluid, Zofran IV for nausea and ketorolac IV for pain. Differential Diagnosis Differential Diagnoses: The differential diagnosis associated with the presentation includes (As noted above) Lab Data MDM Lab Attestation statement: I reviewed the patient's lab results. (As noted above) 05/13/23 17:07 05/13/23 17:07 Labs: Lab Results 05/13/23 05/13/23 Range/Units 17:07 17:12 WBC 8.7 (4.8-10.8) X10*3/uL RBC 4.57 (4.20-5.50) X10*6/uL Hgb 13.0 (12.0-16.0) g/dl Hct 39.7 (37.0-47.0) % MCV 86.9 (80.0-98.0) fL MCH 28.4 (27.0-33.0) pg MCHC 32.7 (31.0-35.0) g/dl RDW 12.8 (11.0-16.0) % Plt Count 227 (160-400) X10*3/uL MPV 9.9 (9.4-12.3) fL Immature Gran % (Auto) 0.2 (0.0-0.4) % Neut % (Auto) 60.2 (45-73) % Lymph % (Auto) 30.8 (20-40) % Benzie % (Auto) 6.8 (2-11) % Eos % (Auto) 1.7 (0-4) % Baso % (Auto) 0.3 (0-2) % Lymph # (Auto) 2.7 (1.2-4.9) X10*3/uL Benzie # (Auto) 0.6 (0.1-1.2) X10*3/uL Eos # (Auto) 0.2 (0.0-0.4) X10*3/uL Baso # (Auto) 0.0 (0.0-0.2) X10*3/uL Abs Immat Gran (auto) 0.02 (0.00-0.03) X10*3/uL Absolute Neuts (auto) 5.2 (2.0-8.3) x10*3/uL Absolute Nucleated RBC 0.000 (0.0-0.012) X10*3/uL Nucleated RBC % (auto) 0.0 (0.0-0.2) /100WBC Sodium 142 (135-145) mmol/L Potassium 3.4 D (3.3-5.1) mmol/L Chloride 106 (96-108) mmol/L Carbon Dioxide 28 (22-29) mmol/L Anion Gap 11 L (12-20) BUN 13 (9-16) mg/dL Creatinine 0.73 (0.5-1.4) mg/dL Estim Creat Clear Calc 87.8 Estimated GFR > 60 Random Glucose 111 (60-115) mg/dL Calcium 9.5 (8.4-10.2) mg/dL Magnesium 2.2 (1.6-2.6) mg/dL Total Bilirubin 0.3 (0.0-1.0) mg/dL AST 20 (5-31) U/L ALT 16 (0-31) U/L Alkaline Phosphatase 85 (39-117) U/L Total Protein 7.1 (6.5-8.0) g/dL Albumin 4.4 (3.5-5.0) g/dL Lipase 26 (8-78) U/L Urine Color Yellow Urine Appearance Clear Urine pH 6.0 (5.0-9.0) Ur Specific [place] 1.010 (1.005-1.025) Urine Protein Negative (Neg-Trace) mg/dL Urine Glucose (UA) Negative (Negative) mg/dL Urine Ketones Negative (Negative) mg/dL Urine Blood Negative (Negative) Urine Nitrite Negative (Negative) Ur Leukocyte Esterase Trace H (Negative) Urine RBC 0-2 (0-2) /HPF Urine WBC 0-5 (0-5) /HPF Ur Squamous Epith Cells 0-2 (0-2) /HPF Urine Bacteria 1+ (None Seen) Hyaline Casts 0-2 (0-2) /LPF Radiology Impression Discussion of test interpretation with radiology: I have reviewed the radiologist's reading. Radiologist Impression: CT/CT abdomen pelvis w IV con IMPRESSION: 1. A cause for the patient's left lower quadrant pain and diarrhea has not been found. 2. Incidental note made of cholelithiasis without cholecystitis, stable hepatic hemangioma, uterine fibroids and small right ovarian cysts. Fleischner guidelines were followed. External Record Review External record reviewed: Outpatient record and Prior outpatient labs Prescription Management I considered prescription management with: Antibiotic Discharge Plan Discharge Clinical Impression: Urinary tract infection Patient Disposition: Home, Self-Care Instructions: Urinary Tract Infection in Women (ED) Additional Instructions: Be sure to stay well hydrated. Complete the entire course of antibiotics as prescribed, your received the initial dose in the emergency department, began taking this at home tomorrow morning. Contact your primary care provider to arrange for follow-up within 1-3 days. You may return back to emergency department any new or worsening symptoms or concerns. Prescriptions: New cefuroxime axetil 500 mg tablet 500 mg PO BID Qty: 13 0RF No Action Vivitrol 380 mg suspension,extended rel recon 380 mg IM Q4W Qty: 1 5RF naltrexone 50 mg tablet 50 mg PO DAILY Qty: 30 0RF escitalopram oxalate [Lexapro] 20 mg tablet 20 mg PO DAILY Qty: 90 3RF Referrals: Javon Bartlett MD [Primary Care Provider] -
[2023-05-13 17:24] LABS: MANUAL DIFF FLAG NO
[2023-05-13 17:27] LABS: Appearance Urine Clear; Color Urine Yellow; Glucose Urine UA Negative (Negative); Leukocyte Esterase Urine Trace (Negative); Nitrite Urine Negative (Negative); UMIC TRIGGER UACC YES; Urine Blood Negative (Negative); Urine Ketones Negative (Negative); Urine Protein Negative (Neg-Trace)
[2023-05-13 17:28] LABS: Basophils Percent Auto 0.3 % (0-2); Eosinophils Absolute Auto 0.2 X10*3/uL (0.0-0.4); Eosinophils Percent Auto 1.7 % (0-4); Hematocrit 39.7 % (37.0-47.0); Imm Gran Abs Auto 0.02 X10*3/uL (0.00-0.03); Imm Gran Pct Auto 0.2 % (0.0-0.4); Lymphocytes Absolute Auto 2.7 X10*3/uL (1.2-4.9); Lymphocytes Percent Auto 30.8 % (20-40); Mean Corpuscular HGB Conc 32.7 g/dl (31.0-35.0); Mean Corpuscular Hemoglobin 28.4 pg (27.0-33.0); Mean Corpuscular Volume 86.9 fL (80.0-98.0); Mean Platelet Volume 9.9 fL (9.4-12.3); Monocytes Absolute Auto 0.6 X10*3/uL (0.1-1.2); Monocytes Percent Auto 6.8 % (2-11); Neutrophils Absolute Auto 5.2 x10*3/uL (2.0-8.3); Neutrophils Percent Auto 60.2 % (45-73); Platelet Count 227 X10*3/uL (160-400); Red Blood Count 4.57 X10*6/uL (4.20-5.50); Red Cell Distribution Width 12.8 % (11.0-16.0); White Blood Count 8.7 X10*3/uL (4.8-10.8)
[2023-05-13 17:30] LABS: Bacteria Urine 1+ (None Seen); Hyaline Casts Urine 0-2 /LPF (0-2); RBC Urine 0-2 /HPF (0-2); Squamous Epithelial Cell Urine 0-2 /HPF (0-2); WBC Urine 0-5 /HPF (0-5)
[2023-05-13 17:38] LABS: Alanine Aminotransferase 16 U/L (0-31); Albumin Level 4.4 g/dL (3.5-5.0); Alkaline Phosphatase 85 U/L (39-117); Anion Gap 11 (12-20); Aspartate Amino Transferase 20 U/L (5-31); Bilirubin Total 0.3 mg/dL (0.0-1.0); Blood Urea Nitrogen 13 mg/dL (9-16); Calcium 9.5 mg/dL (8.4-10.2); Carbon Dioxide 28 mmol/L (22-29); Chloride 106 mmol/L (96-108); Creatinine Clr Calc Pharmacy 87.8; Estimated Glomerular Filt Rate > 60; Glucose Random 111 mg/dL (60-115); Magnesium 2.2 mg/dL (1.6-2.6); Potassium 3.4 mmol/L (3.3-5.1); Sodium 142 mmol/L (135-145); Total Protein 7.1 g/dL (6.5-8.0)
[2023-05-13] MEDS: 0.9 % Sodium Chloride 1,000 ML 999 ML IV (23:24)
[2023-05-13] MEDS: Ketorolac Tromethamine 30 MG/ML VIAL IVPUSH (23:25)
[2023-05-13] MEDS: iohexoL 350 MG/ML 100 ML INFUS..BTL 85 ML IV (23:52)
[2023-05-14 00:19] LABS: Lipase 26 U/L (8-78)
[2023-05-14 01:38] VITALS: BP 153/77; PULSE 70; RESP 18; TEMP 36.6; O2SAT 99
== END 2023-05-14 01:44 | disposition home or self-care (01) ==
PROVIDERS: Nurse Practitioner Family; Physician Assistant; Emergency Provider Emergency Medicine Emergency Medical Services; PCP Internal Medicine
DX: N39.0 Urinary tract infection, site not specified (principal); R10.32 Left lower quadrant pain; F17.200 Nicotine dependence, unspecified, uncomplicated; Z71.6 Tobacco abuse counseling; Z79.899 Other long term (current) drug therapy
CPT/HCPCS: 36415; 74177; 80053; 81001; 83690; 83735; 85025; 96374; 99284; J1885; Q9967

== ENCOUNTER 2023-05-28 14:22 | Outpatient (REF) | payer MEDICAID, SELFPAY ==
--- NOTE | ~2023-05-28 | US_ITS ---
EXAMINATION: US PELVIS COMPLETE CLINICAL INFORMATION: Left lower quadrant pain; postmenopausal patient. COMPARISON: None. TECHNIQUE: Transabdominal imaging was performed. Imaging is technically limited by overlapping bowel gas, incomplete bladder emptying and body habitus. FINDINGS: The uterus is of normal size and echogenicity measuring 8.0 x 4.2 x 5.0 cm. The uterus is anteverted. The estimated endometrial stripe thickness is 0.6 cm. Note is made that the endometrium is poorly visualized due to overlapping bowel gas. FIBROIDS: There are 4 fibroids seen. 1. Location: Leftward fundus towards the cornu. Size: 1.8 x 1.2 x 1.8 cm. Prior: 2.3 x 2.0 x 2.0 cm. Fibroid characteristics: Hypoechoic. 2. Location: Anterior fundus. Size: 2.4 x 1.9 x 2.3 cm. Prior: 2.1 x 2.2 x 2.1 cm. Fibroid characteristics: Heterogeneous echotexture. 3. Location: Lower leftward posterior body, myometrial. Size: 1.3 x 1.3 x 1.4 cm. Prior: Not seen. Fibroid characteristics: Hypoechoic 4. Location: Mid rightward posterior body, myometrial. Size: 1.5 x 1.1 x 1.6 cm. Prior: Not seen. Fibroid characteristics: Heterogeneous echotexture The right ovary is normal in size and echotexture, measuring 6.0 x 2.3 x 3.3 mL, for a volume of 25.3 mL. The right ovary contains multiple simple follicles, the largest a 2.3 cm in maximal diameter dominant physiologic follicles. These require no imaging follow-up. The left ovary is nonvisualized. There is no pelvic free fluid. No adnexal mass is seen. US/US pelvic and transvaginal IMPRESSION: 1. Uterine fibroids are seen, as detailed. 2. The left ovary is not visualized.
== END 2023-05-28 14:23 | disposition home or self-care (01) ==
LOC: HO.HMGCX 14:22
PROVIDERS: PCP Internal Medicine; Visit Provider Internal Medicine
DX: R10.30 Lower abdominal pain, unspecified (principal)
CPT/HCPCS: 76830; 76856

== ENCOUNTER 2023-07-14 15:24 | Outpatient (AMB) | payer MEDICAID, SELFPAY ==
[2023-07-14 15:49] VITALS: BP 130/72; PULSE 77; O2SAT 98
--- NOTE | 2023-07-14 15:49 | A.OFFVIS_ITS ---
Intake Vital Signs 07/14/23 15:49 BP 130/72 Blood Pressure Location Lt radial Position Sitting Pulse 77 Pulse Source Pulse Oximeter Pulse Oximetry (%) 98 Oxygen Delivery Method Room Air Intake Visit Reasons: Katy Inj Intake Note: the patient presents for a katy inj Content Checker Required: No Allergies No Known Allergies Allergy (Verified 07/14/23 15:50) HPI Katy Inj HPI Details Pt presents for katy injection. Reports she has been taking care of her mother who has many appointments and that is why she has needed to reschedule her. Has no concerns about recovery, No concerns for medication side effects. [facility] Medical History Alcohol use disorder Alcohol dependence Endometriosis Alcohol abuse Surgical History History of endometrial ablation Social History (Updated 02/25/23 @ 13:37 by Jennifer Silva CNP) Household Members: Spouse Household Members Other:: mother Housing: House Do you presently have visiting nurse or other home services: No Alcohol intake: former Patient Tobacco Use Status: Current everyday Tobacco user Second Hand Smoke Exposure: No service: No Current occupational status: employed Review of Systems Const Reports as per HPI Physical Exam Vital Signs: Last Vital Signs Pulse 77 07/14/23 15:49 BP 130/72 07/14/23 15:49 Pulse Ox 98 07/14/23 15:49 Oxygen Delivery Method Room Air 07/14/23 15:49 Const General: cooperative and healthy appearing Resp Effort & Inspection: normal respiratory effort Skin General skin exam: no rashes or lesions noted Psych Appearance: grossly normal Mental Status: mental status grossly normal Speech and movement: Normal speech and movement present Affect: normal affect Attitude: cooperative Office Meds Vivitrol 380 mg intramuscular suspension,extended release Performing Provider: Maria G King NP Performing Location: [facility] Administered by: Maria G King NP on 07/14/23 15:00 Dose Route Admin Location Dispensed Lot Number Expiration Date [facility][NOTE 3] Senior Animal Trainer 380 mg IM RG 380 mg [id number] 07/17/25 75238-874-49 [employer] Comments: Pt tolerated injection well. Reviewed signs and symptoms of infection, encouraged pt to call office with concerns. Assessment & Plan Assessment & Plan (1) Alcohol use disorder, moderate, in sustained remission: Comment: doing well, no concerns Tolerating monthly vivitrol well. Code(s): F10.21 - Alcohol dependence, in remission Plan Continue with monthly vivitrol injection. Follow-up in one month. Orders: Orders AMB Naltrexone Injection Patient Supplied 07/14/23 F10.21 - Alcohol dependence, in remission Coding Level of Care Code Est Pt Level 3 (80296) Diagnoses Alcohol use disorder, moderate, in sustained remission F10.21
== END 2023-07-14 16:13 | disposition home or self-care (01) ==
PROVIDERS: PCP Internal Medicine; Visit Provider Nurse Practitioner Family
DX: F10.21 Alcohol dependence, in remission (principal)
CPT/HCPCS: 99213; J2315

== ENCOUNTER → 2023-07-14 15:24 | Outpatient (BNVA) | payer MEDICAID, SELFPAY | PROVIDERS: PCP Internal Medicine; Visit Provider Nurse Practitioner Family | DX: F10.21 Alcohol dependence, in remission (principal); Z51.81 Encounter for therapeutic drug level monitoring; Z79.899 Other long term (current) drug therapy | CPT/HCPCS: 96372; 99212 ==

== ENCOUNTER 2023-10-07 15:11 | Outpatient (REF) | payer MEDICAID, SELFPAY ==
[2023-10-07 16:06] LABS: MANUAL DIFF FLAG NO
[2023-10-07 16:53] LABS: Basophils Percent Auto 0.3 % (0-2); Eosinophils Absolute Auto 0.1 X10*3/uL (0.0-0.4); Eosinophils Percent Auto 1.5 % (0-4); Hematocrit 38.3 % (37.0-47.0); Imm Gran Abs Auto 0.02 X10*3/uL (0.00-0.03); Imm Gran Pct Auto 0.2 % (0.0-0.4); Mean Corpuscular HGB Conc 33.9 g/dl (31.0-35.0); Mean Corpuscular Hemoglobin 29.3 pg (27.0-33.0); Mean Corpuscular Volume 86.5 fL (80.0-98.0); Monocytes Absolute Auto 0.6 X10*3/uL (0.1-1.2); Monocytes Percent Auto 6.1 % (2-11); Neutrophils Absolute Auto 5.4 x10*3/uL (2.0-8.3); Neutrophils Percent Auto 58.9 % (45-73); Platelet Count 235 X10*3/uL (160-400); Red Blood Count 4.43 X10*6/uL (4.20-5.50); Red Cell Distribution Width 12.7 % (11.0-16.0); White Blood Count 9.2 X10*3/uL (4.8-10.8)
[2023-10-07 17:22] LABS: Alanine Aminotransferase 15 U/L (0-31); Albumin Level 4.3 g/dL (3.5-5.0); Alkaline Phosphatase 72 U/L (39-117); Anion Gap 10 (12-20); Aspartate Amino Transferase 16 U/L (5-31); Bilirubin Total 0.3 mg/dL (0.0-1.0); Blood Urea Nitrogen 18 mg/dL (9-16); Calcium 9.5 mg/dL (8.4-10.2); Carbon Dioxide 30 mmol/L (22-29); Chloride 107 mmol/L (96-108); Estimated Glomerular Filt Rate > 60; Glucose Random 79 mg/dL (60-115); Potassium 3.6 mmol/L (3.3-5.1); Sodium 143 mmol/L (135-145); Total Protein 6.9 g/dL (6.5-8.0)
[2023-10-07 17:39] LABS: TSH reflex Free T4 1.63 uIU/mL (0.32-4.0)
== END 2023-10-07 15:12 | disposition home or self-care (01) ==
LOC: HO.LAB 15:11
PROVIDERS: PCP Internal Medicine; Visit Provider Nurse Practitioner Family
DX: F10.21 Alcohol dependence, in remission (principal); Z51.81 Encounter for therapeutic drug level monitoring; Z79.899 Other long term (current) drug therapy
CPT/HCPCS: 36415; 80053; 84443; 85025; 96372; 99212; J2315

== ENCOUNTER 2023-10-07 15:11 | Outpatient (AMB) | payer MEDICAID, SELFPAY ==
--- NOTE | 2023-10-07 15:25 | AM.OFFVISNUR ---
Intake Intake Visit Reasons: Katy Inj Allergies No Known Allergies Allergy (Verified 07/14/23 15:50) Coding
[2023-10-07 15:26] VITALS: BP 136/74; PULSE 84; O2SAT 99
--- NOTE | 2023-10-07 15:26 | A.OFFVISCC_ITS ---
Intake Vital Signs 10/07/23 15:26 BP 136/74 Blood Pressure Location Lt radial Position Sitting Pulse 84 Pulse Source Pulse Oximeter Pulse Oximetry (%) 99 Oxygen Delivery Method Room Air Intake Visit Reasons: Katy Inj Intake Note: the patient presents for a katy inj Permastone Installer Required: No Allergies No Known Allergies Allergy (Verified 10/07/23 15:27) Do you need a note to return to daycare/school/sports/work: No HPI Katy Inj HPI Details Patient presents for Vivitrol injection Reports she has been sober for 900 days She is hoping to discontinue the vivitrol after next injection appointment She has no concerns for recovery at this time [facility] Medical History Alcohol use disorder Alcohol dependence Endometriosis Alcohol abuse Surgical History History of endometrial ablation Social History (Updated 02/25/23 @ 13:37 by Jennifer Silva CNP) Household Members: Spouse Household Members Other:: mother Housing: House Do you presently have visiting nurse or other home services: No Alcohol intake: former Patient Tobacco Use Status: Current everyday Tobacco user Second Hand Smoke Exposure: No service: No Current occupational status: employed Review of Systems Const Reports as per HPI Physical Exam Vital Signs: Last Vital Signs Pulse 84 10/07/23 15:26 BP 136/74 10/07/23 15:26 Pulse Ox 99 10/07/23 15:26 Oxygen Delivery Method Room Air 10/07/23 15:26 Const General: cooperative Resp Effort & Inspection: normal respiratory effort Psych Appearance: grossly normal Mental Status: mental status grossly normal Speech and movement: Normal speech and movement present Affect: normal affect Attitude: cooperative Office Meds Vivitrol 380 mg intramuscular suspension,extended release Performing Provider: Maria G King NP Performing Location: [facility] [place] Administered by: Johanna Mayberry RN on 10/07/23 15:41 Dose Route Admin Location Dispensed Lot Number Expiration Date [facility][NOTE 3] Television Antenna Installer 380 mg IM LG 380 mg [id number] 11/15/25 72024-882-70 [employer] Comments: Pt denies any signs or symptoms of reaction, verbally agrees to call [facility] with any concerns or questions. Assessment & Plan Assessment & Plan (1) Alcohol use disorder, moderate, in sustained remission: Comment: doing well, no concerns Tolerating monthly vivitrol well. Code(s): F1. - Alcohol dependence, in remission Plan: -Discussed with her pushing injection out to in 2 months instead of 2 before she discontinues, she is agreeable to this -Follow up 3 months -She requested refill for lexapro, rx sent to pharmacy -Encouraged her to call [facility] if she needs to be seen earlier Orders: Orders AMB Naltrexone Injection Patient Supplied ([place]) Today - Alcohol dependence, in remission TSH reflex Free T4 Today - Alcohol dependence, in remission Complete Blood Count Auto Diff Today - Alcohol dependence, in remission Comprehensive Met. Panel Today - Alcohol dependence, in remission Medications: Refilled escitalopram oxalate (Lexapro) 20 mg PO DAILY 90 tabs 3RF Coding Level of Care Code Est Pt Level 3 (86578) Diagnoses Alcohol use disorder, moderate, in sustained remission
== END 2023-10-07 15:58 | disposition home or self-care (01) ==
PROVIDERS: PCP Internal Medicine; Visit Provider Nurse Practitioner Family
DX: F10.21 Alcohol dependence, in remission (principal)
CPT/HCPCS: 99213

== ENCOUNTER 2024-09-20 11:33 | Emergency (ER) | payer SELFPAY | END 2024-09-20 14:52 | disposition left against medical advice (07) | LOC: HO.ED 13:30 | PROVIDERS: Emergency Provider Emergency Medicine; PCP Internal Medicine | DX: R51.9 Headache, unspecified (principal) ==